=== PATIENT | female | born 1970 | race Caucasian/White ===

== ENCOUNTER 2021-07-16 15:59 | Observation (INO) ==
--- NOTE | 2021-07-16 16:30 | DR.GENAD ---
HPI Time Seen Time Seen by Provider: 07/16/21 16:29 PCP Primary Care Physician: MARISOL HPI Comment HPI Comment: PATIENT IS 51YR OLD FEMALE IN ER WITH ABDOMINAL PAIN AND GENERALIZED WEAKNESS. HISTORY ANEMIA. NO FEVER, VOMITING OR DIARRHEA OR DYSURIA. RECENT BLOOD TRANSFUSION. Complaint/Symptoms Chief Complaint Doctors Comments: ABDOMINAL PAIN, GENERALIZED WEAKNESS AND HISTORY OF ANEMIA. Chief Complaint:: PATIENT STATES SHE HAS BEEN HAVING ABD PAIN. PATIENT ALSO STATES IN THE RECENT PAST SHE HAS HAD TO HAVE OUT PATIENT BLOOD TRANSFUSIONS D/T ANEMIA. PATIENT HAS BEEN HAVING SOME WEAKNESS WELL. COVID-19 Coronavirus risk:travel/contact w/high risk person: No Has patient experienced Coronavirus symptoms: No Nurses notes reviewed Nurses Notes Review: Yes Source History Provided: Patient Mode of Arrival Mode of Arrival: EMS Timing Onset of Chief Complaint: 07/10/21 Came on: Suddenly Duration Duration: Constant Duration: Days Severity Severity: Moderate Modifying Factors Worsens:: EATING. Improves:: LYING STILL. Associated Signs and Symptoms Associated Signs and Symptoms: WEAKNESS Other History Other History: HISTORY ANEMIA. PMH PMH Past Medical History: Yes Past Medical History: Anemia, Anxiety, COPD, Depression, GERD, Hypertension and Liver Disease Past Medical History Comment: HEPATITIS, INSOMNIA, PANCREATITIS Past Surgical History: Yes Surgical History: Abdominal Surgery Family History History of Family Medical Conditions: Yes Social History Does any household member use tobacco: No Alcohol Use: None Do you use any recreational Drugs:: No Lives With: Other Lives Where: Custodial Travel Risk Coronavirus risk:travel/contact w/high risk person: No Has patient experienced Coronavirus symptoms: No Infectious screening In the last 2 months have you had wt loss of >10#?: NO Have you had fever, night sweats or hemotysis?: No Have you traveled outside the country in the last 6 months?: No Isolation: Standard ROS Review of Systems Constitutional: See HPI, Weakness and Fatigue; negative Fever Eyes: No Symptoms Reported and See HPI; negative Blurred Vision and Diplopia ENTM: No Symptoms Reported and See HPI; negative Nose Discharge and Nose Congestion Respiratoy: No Symptoms Reported and See HPI; negative Moist Cough, Short of Breath and Wheezing Cardiovascular: No Symptoms Reported and See HPI; negative Chest Pain Gastrointestinal/Abdominal: See HPI, Abdominal Pain and Nausea; negative Diarrhea and Vomiting Genitourinary: No Symptoms Reported and See HPI; negative Dysuria and Hematuria Neurological: See HPI and Weakness; negative Headache and Dizziness Musculoskeletal: No Symptoms Reported and See HPI; negative Back Pain and Muscle Pain Integumentary: No Symptoms Reported and See HPI; negative Rash and Juandice Hematologic/Lymphatic: No Symptoms Reported and See HPI; negative Easy Bleeding and Easy Bruising Endocrine: No Symptoms Reported and See HPI; negative Increased Thirst and Increased Urine Psychiatric: No Symptoms Reported and See HPI All Other Systems: Reviewed and Negative PE Vital Signs Vitals: Temperature 97.8 F Pulse Rate 78 Respiratory Rate 20 Blood Pressure [Left Arm] 152/80 Blood Pressure 138/70 O2 Sat by Pulse Oximetry 99 General Limitations: No Limitations General Appearance: Alert and In No Apparent Distress Head Head Exam: Normal Inspection Eyes Eye exam: Normal Appearance and PERRL; negative Scleral Icterus and Conjunctival Injection ENT ENT Exam: Normal Exam, Normal Oropharynx, Normal External Ear Exam and TM's No rmal Bilaterally External Ear Exam: Normal External Inspection; negative Mastoid Tenderness TM/Canal Exam: Bilateral: Normal Nose Exam: Normal Nose Exam Mouth Exam: Normal Inspection; negative Lip Swelling and Tongue Swelling Throat Exam: Normal Inspection; negative Tonsillar Erythema, Tonsillomegaly and Tonsillar Exudate Neck Neck Exam: Normal Inspection and Trachea Midline; negative Tenderness Chest Chest Inspection: Normal Inspection and Symmetric Chest Wall Rise; negative Tenderness Respiratory Respiratory Exam: Normal Lung Sounds Bilat; negative Accessory Muscle Use, Chest Wall Tenderness and Respiratory Distress Respiratory Exam: Bilateral: Clear to Auscultation Cardiovascular Cardiovascular Exam: Regular Rate, Normal Rhythm and Normal Heart Sounds; negative Systolic Murmur and Diastolic Murmur Abdominal Exam Abdominal Exam: Normal Bowel Sounds, Soft and Tenderness Abdominal Tenderness: Diffuse and Mild Extremities Extremities Exam: Normal Inspection and Normal Capillary Refill Back Back Exam: Normal Inspection; negative (R) CVA Tenderness and (L) CVA Tenderness Neurologic Neurological Exam: Alert and Oriented X3; negative Motor Sensory Deficit Psychiatric Psychiatric Exam: Normal Affect and Normal Mood Skin Skin Exam: Warm, Dry, Intact and Normal Color MDM Differential Diagnosis Differential Diagnosis: ABDOMINAL PAIN, VIRAL SYNDROME, GENERALIZED WEAKNESS, ANEMIA. COURSE Treatment Treatment: SEE ORDERS DONE WHILE IN ER. LABS, EKG AND XRAY DISCUSSED WITH PATIENT. PATIENT ADMITTED TO HOSPITAL FOR FURTHER MANAGEMENT. Consultation Consultation Comments: DISCUSSED PATIENT WITH DR. JONES. HE WILL ADMIT PATIENT ROR Labs Reviewed Laboratory Results Reviewed?: Yes Result Diagrams: 07/18/21 05:57 07/18/21 05:57 Laboratory: WBC 9.6 X10^3/uL (3.6-10.0) 07/16/21 16:58 RBC 3.55 X10^6/uL (3.5-5.4) 07/16/21 16:58 Hgb 8.7 g/dL (12.0-16.0) L 07/16/21 16:58 Hct 26.4 % (36.0-47.0) L 07/16/21 16:58 MCV 74.4 fL (80.0-100.0) L 07/16/21 16:58 MCH 24.5 pg (27.0-34.0) L 07/16/21 16:58 MCHC 33.0 g/dL (33.0-35.0) 07/16/21 16:58 RDW 28.6 % (11.6-16.5) H 07/16/21 16:58 Plt Count 364 X10^3/uL (150.0-450.0) 07/16/21 16:58 Plt Count Comment Adequate (ADEQUATE) 07/16/21 16:58 MPV 8.8 fL (7.4-11.0) 07/16/21 16:58 Neut % (Auto) 62.3 % (42.0-75.0) 07/16/21 16:58 Lymph % (Auto) 22.9 % (21.0-51.0) 07/16/21 16:58 [place] % (Auto) 8.0 % (0.0-13.0) 07/16/21 16:58 Eos % (Auto) 5.9 % (0.9-2.9) H 07/16/21 16:58 Baso % (Auto) 0.9 % (0.2-1.0) 07/16/21 16:58 Neut # (Auto) 6.0 x10^3/uL (2.2-4.8) H 07/16/21 16:58 Lymph # (Auto) 2.2 X10^3/uL (1.3-2.9) 07/16/21 16:58 [place] # (Auto) 0.8 x10^3/uL (0.3-0.8) 07/16/21 16:58 Eos # (Auto) 0.6 x10^3/uL (0.0-0.2) H 07/16/21 16:58 Baso # (Auto) 0.1 X10^3/uL (0.0-0.1) 07/16/21 16:58 Absolute Nucleated RBC 0.0 /100WBC 07/16/21 16:58 Plt Morphology Comment Normal (NORMAL) 07/16/21 16:58 RBC Morphology Abnormal (NORMAL) A 07/16/21 16:58 Hypochromasia Slight A 07/16/21 16:58 Anisocytosis 3+ A 07/16/21 16:58 Microcytosis Slight A 07/16/21 16:58 Target Cells Present 07/16/21 16:58 APTT 36.5 SECONDS (22.9-36.5) 07/16/21 16:58 PTT Comment - 07/16/21 16:58 Sodium 138 mmol/L (136-145) 07/16/21 16:58 Corrected Sodium 138 mmol/L (136-145) 07/16/21 16:58 Potassium 3.2 mmol/L (3.5-5.1) L 07/16/21 16:58 Chloride 102 mmol/L (98-107) 07/16/21 16:58 Carbon Dioxide 23.5 mmol/L (21-32) 07/16/21 16:58 BUN 25 mg/dL (7-18) H 07/16/21 16:58 Creatinine 2.13 mg/dL (0.55-1.02) H 07/16/21 16:58 Est GFR (MDRD) Af Amer 32 (>60) L 07/16/21 16:58 Est GFR (MDRD) Non-Af 26 (>60) L 07/16/21 16:58 Glucose 120 mg/dL (65-99) H 07/16/21 16:58 Calcium 8.5 mg/dL (8.5-10.1) 07/16/21 16:58 Corrected Calcium 9.5 mg/dL (8.5-10.1) 07/16/21 16:58 Total Bilirubin 0.20 mg/dL (0.2-1.0) 07/16/21 16:58 AST 14 Units/L (15-37) L 07/16/21 16:58 ALT 12 Units/L (12-78) 07/16/21 16:58 Alkaline Phosphatase 226 Units/L (46-116) H 07/16/21 16:58 Total Protein 7.7 g/dL (6.4-8.2) 07/16/21 16:58 Albumin 2.8 g/dL (3.4-5.0) L 07/16/21 16:58 Globulin 4.9 g/dL (2.5-4.5) H 07/16/21 16:58 Albumin/Globulin Ratio 0.6 Ratio (1.1-2.1) L 07/16/21 16:58 Amylase 22 Units/L (25-115) L 07/16/21 16:58 Lipase 307 Units/L (73-393) 07/16/21 16:58 SARS CoV-2 RNA Rapid KATINA Negative (NEGATIVE) 07/16/21 17:02 Blood Type B POSITIVE 07/16/21 16:58 Antibody Screen Negative 07/16/21 16:58 XRAY XRAY Interpreted by: Radiologist (REPORT NOTED.) and Self EKG Rate: 91 [place]: Normal Rhythm: NSR Block: None Hypertrophy: None ST: Nonsp Opioid Opioid Risk Tool Age (Yared box if 16-45): No History of Preadolescent Sexual Abuse: No Total: 0 Total Score Risk Category: Low Risk Copyright: Jessee SORTO predicting aberrant behaviors Diagnosis Discharge Problem: Infected surgical wound, Acute dehydration, Renal insufficiency, Hypokalemia Anemia Qualifiers: Anemia type: iron deficiency Iron deficiency anemia type: chronic blood loss Qualified Code(s): D50.0 - Iron deficiency anemia secondary to blood loss (chronic) Instructions Instructions: Colonoscopy, Adult, Care After, [id number] Forms: Precautions for COVID19 [facility] Social Distancing
[2021-07-16 17:11] LABS: BASOPHILS # (AUTO) 0.1 X10^3/uL (0.0-0.1); MEAN PLATELET VOLUME 8.8 fL (7.4-11.0); RED BLOOD COUNT 3.55 X10^6/uL (3.5-5.4); RED CELL DISTRIBUTION WIDTH 28.6 % (11.6-16.5); WHITE BLOOD COUNT 9.6 X10^3/uL (3.6-10.0)
[2021-07-16 17:17] LABS: BASOPHILS % (AUTO) 0.9 % (0.2-1.0); EOSINOPHILS # (AUTO) 0.6 x10^3/uL (0.0-0.2); EOSINOPHILS % (AUTO) 5.9 % (0.9-2.9); HEMATOCRIT 26.4 % (36.0-47.0); HEMOGLOBIN 8.7 g/dL (12.0-16.0); LYMPHOCYTES # (AUTO) 2.2 X10^3/uL (1.3-2.9); LYMPHOCYTES % (AUTO) 22.9 % (21.0-51.0); MEAN CORPUSCULAR HEMOGLOBIN 24.5 pg (27.0-34.0); MEAN CORPUSCULAR VOLUME 74.4 fL (80.0-100.0); MONOCYTES # (AUTO) 0.8 x10^3/uL (0.3-0.8); NEUTROPHILS % (AUTO) 62.3 % (42.0-75.0)
[2021-07-16 17:20] LABS: AMYLASE 22 Units/L (25-115); LIPASE 307 Units/L (73-393)
[2021-07-16 17:24] LABS: ALBUMIN 2.8 g/dL (3.4-5.0); CALCIUM 8.5 mg/dL (8.5-10.1); CARBON DIOXIDE 23.5 mmol/L (21-32); COR CA(FOR HYPOALB) 9.5 mg/dL (8.5-10.1); CREATININE 2.13 mg/dL (0.55-1.02); TOTAL PROTEIN 7.7 g/dL (6.4-8.2)
[2021-07-16 17:55] LABS: HYPOCHROMASIA SLIGHT; PLATELET MORPHOLOGY COMMENT NORMAL (NORMAL)
[2021-07-16 17:56] LABS: ANISOCYTOSIS 3+; MICROCYTOSIS SLIGHT; TARGET CELLS PRESENT
[2021-07-16] MEDS ORDERED: KLOR-CON ONE (18:00)
[2021-07-16] MEDS: KLOR-CON PO SCH (18:11)
--- NOTE | 2021-07-16 20:27 | RAD ---
HISTORYHAVING ABD PAIN. PATIENT ALSO STATES IN THE PAST SHE HAS HAD TO HAVE OUT PATIENT BLOOD TRANSFUSIONS D/T ANEMIA. PATIENT HAS BEEN HAVING SOME WEAKNESS WELL. Relevant Clinical InformationSTUDYACUTE ABDOMEN SERIESCOMPARISONFINDINGSHeart size is normal. Lungs are clear. There is no pleural effusion or pneumothorax. There is nonspecific gas is dilation of both small and large bowel. The etiology is uncertain. This could be ileus or less likely obstruction. No free air is detected.IMPRESSION1. [No acute cardiopulmonary disease.]2. [Nonspecific dilation large and small bowel. Question ileus versus less likely obstruction.]Electronically signed by: Philippe Cole (Jul 16, 2021 20:26:20)
[2021-07-16] MEDS ORDERED: ACETAMINOPHEN 325 MG/10.15 ML PO PRN (21:19)
[2021-07-16] MEDS ORDERED: TYLENOL ELIXIR 325 MG UDC PO PRN ×2 (21:50→22:00)
[2021-07-16] MEDS: NS 1,000 ML IV 1,000 ML IV SCH (22:00)
[2021-07-16 23:24] LABS: BILIRUBIN,URINE NEGATIVE (NEGATIVE); BLOOD/HEMOGLOBIN,URINE 2+ (NEGATIVE); GLUCOSE, URINE NEGATIVE (NEGATIVE); KETONES,URINE NEGATIVE (NEGATIVE); LEUKOCYTE ESTERASE ,URINE 3+ (NEGATIVE); NITRITES,URINE NEGATIVE (NEGATIVE); PROTEIN,URINE 2+ (NEGATIVE); UROBILINOGEN,URINE NORMAL (NORMAL)
[2021-07-16 23:34] LABS: APPEARANCE,URINE SLIGHTLY HAZY (CLEAR); BACTERIA,URINE 1+ /HPF (NEGATIVE); COLOR,URINE YELLOW (YELLOW); SQUAMOUS EPITHELIAL CELL,UR FEW /HPF (NEGATIVE)
[2021-07-17] MEDS ORDERED: PHARMACY CONSULT LTC MEDICATIONS XX SCH (01:00)
[2021-07-17] MEDS ORDERED: NYSTATIN POWDER ONE (06:08)
--- NOTE | 2021-07-17 06:08 | RAD ---
HISTORYAbdominal [id number] r.br.br small bowel dilatation present on the prior examination has improved. Findings would seem most consistent with mild ileus. Patient is status post ventral hernia repair. No abnormal masses or abnormal calcifications are identified. Regional skeleton is intact.IMPRESSIONFindings suggestive of mild ileusElectronically signed by: WOLFGANG LÓPEZ (Jul 17, 2021 06:07:56)
[2021-07-17 06:21] LABS: BASOPHILS # (AUTO) 0.1 X10^3/uL (0.0-0.1); BASOPHILS % (AUTO) 0.9 % (0.2-1.0); EOSINOPHILS # (AUTO) 0.5 x10^3/uL (0.0-0.2); EOSINOPHILS % (AUTO) 5.2 % (0.9-2.9); HEMATOCRIT 23.8 % (36.0-47.0); HEMOGLOBIN 7.9 g/dL (12.0-16.0); LYMPHOCYTES # (AUTO) 1.9 X10^3/uL (1.3-2.9); LYMPHOCYTES % (AUTO) 18.8 % (21.0-51.0); MEAN CORPUSCULAR HEMOGLOBIN 24.5 pg (27.0-34.0); MEAN CORPUSCULAR HGB CONC 33.3 g/dL (33.0-35.0); MEAN CORPUSCULAR VOLUME 73.3 fL (80.0-100.0); MEAN PLATELET VOLUME 8.7 fL (7.4-11.0); MONOCYTES # (AUTO) 0.8 x10^3/uL (0.3-0.8); MONOCYTES % (AUTO) 8.3 % (0.0-13.0); NEUTROPHILS # (AUTO) 6.7 x10^3/uL (2.2-4.8); NEUTROPHILS % (AUTO) 66.8 % (42.0-75.0); RED BLOOD COUNT 3.25 X10^6/uL (3.5-5.4); RED CELL DISTRIBUTION WIDTH 28.4 % (11.6-16.5); WHITE BLOOD COUNT 10.1 X10^3/uL (3.6-10.0)
[2021-07-17] MEDS ORDERED: NYSTATIN POWDER TOP PRN (06:23)
[2021-07-17 06:37] LABS: BLOOD UREA NITROGEN 18 mg/dL (7-18); CALCIUM 7.7 mg/dL (8.5-10.1)
[2021-07-17 07:00] LABS: ALANINE AMINOTRANSFERASE 11 Units/L (12-78); ALBUMIN 2.3 g/dL (3.4-5.0); ALKALINE PHOSPHATASE 188 Units/L (46-116); ASPARTATE AMINO TRANSFERASE 14 Units/L (15-37); CARBON DIOXIDE 20.1 mmol/L (21-32); CHLORIDE 104 mmol/L (98-107); COR CA(FOR HYPOALB) 9.1 mg/dL (8.5-10.1); CREATININE 1.63 mg/dL (0.55-1.02); MAGNESIUM 0.8 mg/dL (1.7-2.9); SODIUM 137 mmol/L (136-145); TOTAL PROTEIN 6.3 g/dL (6.4-8.2); eGFR NON BLACK RACES 35 (>60)
[2021-07-17] MEDS: PHENERGAN INJ 25 MG IM PRN (07:03)
[2021-07-17 07:21] LABS: BAND NEUTROPHILS % 2 % (0-10)
[2021-07-17 07:22] LABS: ANISOCYTOSIS 3+; PLATELET MORPHOLOGY COMMENT NORMAL (NORMAL); TARGET CELLS PRESENT
[2021-07-17 07:23] LABS: HYPOCHROMASIA SLIGHT; MICROCYTOSIS SLIGHT
[2021-07-17] MEDS: KLOR-CON PO SCH (08:31)
[2021-07-17] MEDS: NS + KCL 20 MEQ/L 1,000 ML IV SCH (12:10)
[2021-07-17] MEDS ORDERED: GOLYTELY or GAVILYTE or Equivalent PO SCH (13:00)
[2021-07-17 13:04] VITALS: BMI 44.8
[2021-07-17] MEDS ORDERED: DULCOLAX TAB EC 5 MG PO ONE (13:28)
[2021-07-17] MEDS ORDERED: CITROMA PO ONE (13:28)
[2021-07-17] MEDS: NS 1,000 ML IV 1,000 ML IV SCH (13:42)
[2021-07-17] MEDS: MAGNESIUM SULFATE 1 GRAM/100 mL PREMIX 1 G/100 ML BAG IV PRN ×4 (14:30→20:50)
[2021-07-18] MEDS: MAGNESIUM SULFATE 1 GRAM/100 mL PREMIX 1 G/100 ML BAG IV PRN (00:05)
[2021-07-18] MEDS: PHENERGAN INJ 25 MG IM PRN ×2 (01:02→10:40)
[2021-07-18 06:34] LABS: BASOPHILS # (AUTO) 0.1 X10^3/uL (0.0-0.1); BASOPHILS % (AUTO) 0.6 % (0.2-1.0); EOSINOPHILS # (AUTO) 0.4 x10^3/uL (0.0-0.2); EOSINOPHILS % (AUTO) 3.4 % (0.9-2.9); HEMATOCRIT 28.1 % (36.0-47.0); HEMOGLOBIN 8.8 g/dL (12.0-16.0); LYMPHOCYTES # (AUTO) 2.1 X10^3/uL (1.3-2.9); LYMPHOCYTES % (AUTO) 17.7 % (21.0-51.0); MEAN CORPUSCULAR HEMOGLOBIN 23.4 pg (27.0-34.0); MEAN CORPUSCULAR HGB CONC 31.5 g/dL (33.0-35.0); MEAN CORPUSCULAR VOLUME 74.2 fL (80.0-100.0); MEAN PLATELET VOLUME 9.1 fL (7.4-11.0); MONOCYTES # (AUTO) 0.7 x10^3/uL (0.3-0.8); MONOCYTES % (AUTO) 6.1 % (0.0-13.0); NEUTROPHILS # (AUTO) 8.4 x10^3/uL (2.2-4.8); NEUTROPHILS % (AUTO) 72.2 % (42.0-75.0); RED BLOOD COUNT 3.78 X10^6/uL (3.5-5.4); RED CELL DISTRIBUTION WIDTH 27.9 % (11.6-16.5); WHITE BLOOD COUNT 11.6 X10^3/uL (3.6-10.0)
[2021-07-18] MEDS: NS + KCL 20 MEQ/L 1,000 ML IV SCH (07:12)
[2021-07-18 07:13] LABS: BAND NEUTROPHILS % 4 % (0-10)
[2021-07-18 07:14] LABS: ANISOCYTOSIS 3+; HYPOCHROMASIA 1+; MICROCYTOSIS SLIGHT; OVALOCYTES PRESENT; PLATELET MORPHOLOGY COMMENT NORMAL (NORMAL); TARGET CELLS PRESENT
[2021-07-18 07:16] LABS: ALANINE AMINOTRANSFERASE 11 Units/L (12-78); ALBUMIN 2.6 g/dL (3.4-5.0); ALKALINE PHOSPHATASE 211 Units/L (46-116); ASPARTATE AMINO TRANSFERASE 16 Units/L (15-37); BLOOD UREA NITROGEN 11 mg/dL (7-18); CALCIUM 8.9 mg/dL (8.5-10.1); CARBON DIOXIDE 22.5 mmol/L (21-32); CHLORIDE 104 mmol/L (98-107); CREATININE 1.23 mg/dL (0.55-1.02); MAGNESIUM 2.2 mg/dL (1.7-2.9); SODIUM 138 mmol/L (136-145); TOTAL PROTEIN 7.4 g/dL (6.4-8.2); eGFR NON BLACK RACES 49 (>60)
[2021-07-18] MEDS ORDERED: ZANAFLEX PO PRN (08:23)
[2021-07-18] MEDS ORDERED: MYLICON TAB 80 MG CHEW PO PRN (08:23)
[2021-07-18] MEDS ORDERED: [UNRECOGNIZED DRUG - OTHER] IN PRN (08:23)
[2021-07-18] MEDS ORDERED: ALBUTEROL IN PRN (08:23)
[2021-07-18] MEDS ORDERED: DULCOLAX SUPPOSITORY 10 MG PR PRN (08:23)
[2021-07-18] MEDS ORDERED: MOTRIN TAB 800 MG PO PRN (08:23)
[2021-07-18] MEDS ORDERED: [UNRECOGNIZED DRUG - OTHER] PO SCH (08:30)
[2021-07-18] MEDS ORDERED: LIPASE PROTEASE AMYLASE PO SCH (08:30)
[2021-07-18] MEDS ORDERED: ATARAX TAB 25 MG PO SCH (08:30)
[2021-07-18] MEDS ORDERED: LR 1,000 ML IV 1,000 ML IV ONE (08:42)
[2021-07-18] MEDS ORDERED: D5 LR 1,000 ML 1,000 ML IV ONE (08:43)
--- NOTE | 2021-07-18 08:48 | DR.H&P ---
H&P - History & Physical for Day of: H&P Date: 07/16/21 - Chief Complaint Chief Complaint: ABDOMINAL WALL WOUND, ABDOMINAL PAIN, WEAKNESS - History of Present Illness History of Present Illness: IS A 51 YEAR OLD FEMALE FROM [facility]. SHE PRESENTED WITH COMPLAINTS OF ABDOMINAL PAIN, ABDOMINAL WOUND, AND WEAKNESS. SHE HAS APPARENTLY BEEN FOLLOWED BY , GENERAL SURGEON, IN THE PAST FOR ABDOMINAL WALL INFECTION. PATIENT PRESENTED WITH WITH A LARGE OPEN ABDOMINAL WALL WOUND WITH BLOODY DRAINAGE. ABDOMINAL WOUND MEASURES ABOUT 12 X 12 WITH GRANULATING TISSUE. MILD TO MODERATE ASSOCIATED CELLULITIS AND TUNNELING OF EDGES. SHE HAS HAD A RECENT CLOSURE OF COLOSTOMY WITH SUBSEQUENT WOUND INFECTION. SHE HAS A HISTORY OF SEVERE PANCREATITIS WHICH APPARENTLY REQUIRED A BOWEL RESECTION. NO OLD RECORDS ARE AVAILABE. RESECTION AND COLOSTOMY DONE IN 2020 PER PATIENT. OTHER PMH INCLUDES ANEMIA, ANXIETY, DEPRESSION, COPD, GERD, HTN, BIPOLAR DISORDER, OBESITY, LIVER DISEASE, HEPATITIS, INSOMNIA, AND PANCREATITIS. ON ARRIVAL, HER VITALS WERE 97.8-78-20-99%-138/70. LABS OBTAINED AND REVEALED: WBC 9.6, HGB 8.7, HCT 26.4, SODIUM 138, POTASSIUM 3.2, BUN 25, CREATININE 2.13, GLUCOSE 120, AST 14, ALT 12, ALK PHOS 226, ALBUMIN 2.8, GLOBULIN 4.9, AMULASE 22, LIPASE 307. URINALYSIS REVEALED: WBC 30-50, RBC 5-10, LEUKOCYTES 3+, BACTERIA 1+, BLOOD 2+. A URINE CULTURE WAS SET UP. ABDOMEN AND WOUND CULTURE SET UP. AN ABDOMINAL XRAY WAS OBTAINED AND REVEALED: 1. No acute cardiopulmonary disease. 2. Nonspecific dilation large and small bowel. Question ileus versus less likely obstruction. EKG OBTAINED AND REVEALED: NSR WITH HR 91. PATIENT WAS ADMITTED TO THE HOSPTIAL FOR FURTHER EVALUATION AND TREATMENT OF ANEMIA, DEHYDRATION, ABDOMINAL WALL INFECTION, RENAL INSUFFICIENCY, HYPOKALEMIA. WE CONSULTED . HE PLANS FOR EGD/COLONOSCOPY TOMORROW. SHE WAS STARTED ON NS WITH 20MEQ KCL AT 75 ML/HR, ZOSYN 3.375G IV TID, PHENERGAN 12.5MG IM Q6H PRN, TYLENOL 650MG PO Q4H PRN PAIN/FEVER. WE WILL REVIEW HER HOME MEDICATIONS AND RESUME APPROPRIATE. OTHERWISE, WE PLAN TO FOLLOW-UP WITH AM LABS AND CONTINUE TO MONITOR. TIME SPENT ON CLINICAL ASSESSMENT, REVIEWING LABS AND IMAGING, DECISION MAKING, AND DOCUMENTATION GREATER THAN 75 MINUTES. - Past Medical History Past Medical History: Hypertension, Liver Disease, Depression, Anxiety, Anemia, COPD, GERD - Past Surgical History Surgical History: , Cholecystectomy, Hysterectomy - Social History Does any household member use tobacco: No Alcohol Use: None Drug Use: None - Medications Home Medications: benztropine Allergy (Verified 11/10/19 10:57) ciprofloxacin [From Cipro] Allergy (Verified 11/10/19 10:57) divalproex sodium [From Depakote] Allergy (Verified 11/10/19 10:57) ondansetron [From Zofran] Allergy (Verified 01/03/21 14:34) CONTINUE taking the following medications acetaminophen 650 mg PO Q4H PRN 07/16/21 [History] acetaminophen 650 mg CA Q4H PRN 07/16/21 [History] albuterol sulfate 2 inh INHALATION Q4H PRN 07/16/21 [History] bisacodyl [Dulcolax (bisacodyl)] 10 mg PO QHS PRN 07/16/21 [History] buprenorphine-naloxone [Suboxone] 1 film BUCCAL TID 07/16/21 [History] buspirone 10 mg PO BID 07/16/21 [History] [id number] 2 drp OPHTHALMIC (EYE) Q6H PRN 07/16/21 [History] carboxymethylcellulose sodium 1 drp OPHTHALMIC (EYE) QID PRN 07/16/21 [History] cariprazine [Vraylar] 3 mg PO DAILY 07/16/21 [History] carvedilol [Coreg] 3.125 mg PO BID 07/16/21 [History] citalopram 40 mg PO DAILY 07/16/21 [History] ferrous sulfate 325 mg PO DAILY 07/16/21 [History] fluticasone propionate 2 spray INTRANASAL DAILY 07/16/21 [History] furosemide 20 mg PO BID 07/16/21 [History] hydroxyzine HCl 25 mg PO TID 07/16/21 [History] ibuprofen 800 mg PO Q8H PRN 07/16/21 [History] linaclotide [Linzess] 290 mcg PO QAM 07/16/21 [History] bnzggf-lfmghhtc-vtwqzhg [Creon] 3 cap PO TID 07/16/21 [History] loperamide 2 mg PO Q6H PRN 07/16/21 [History] metoclopramide HCl 10 mg PO QACHS 07/16/21 [History] multivitamin 1 tab PO QAM 07/16/21 [History] pantoprazole 40 mg PO QAM 07/16/21 [History] prazosin 1 mg PO QHS 07/16/21 [History] primidone 100 mg PO DAILY 07/16/21 [History] promethazine 12.5 mg PO Q6H PRN 07/16/21 [History] quetiapine 300 mg PO QHS 07/16/21 [History] silver sulfadiazine 1 applic TOPICAL DAILY 07/16/21 [History] simethicone 80 mg PO Q8H PRN 07/16/21 [History] tizanidine 4 mg PO BID PRN 07/16/21 [History] topiramate 100 mg PO BID 07/16/21 [History] zinc 50 mg PO ONCE 07/16/21 [History] zolpidem [Ambien] 10 mg PO QHS PRN 07/16/21 [History] - Review of Systems Constitutional: Weakness Eyes: No Symptoms Reported ENT: No Symptoms Reported Respiratory: No Symptoms Reported Cardiovascular: No Symptoms Reported Gastrointestinal: See HPI, Nausea, Abdominal Pain Genitourinary: No Symptoms Reported Musculoskeletal: No Symptoms Reported Skin: Wound Neurological: Weakness - Physical Exam Vital Signs: Temperature 98.3 F Pulse Rate [Brachial] 76 Pulse Rate 78 Respiratory Rate 18 Blood Pressure [Left Arm] 132/70 Blood Pressure 138/70 O2 Sat by Pulse Oximetry 98 Oriented: Normal Eyes: Normal Ear: Normal Nose: Normal Respiratory: Diminished Throughout Cardiovascular: Normal : Normal Auscultation: Bowel Sounds: Normal Palpation: Normal, Other Tenderness: Diffuse, Moderate Skin: Wound (12 X 12 OPEN WOUND WITH GRANULATING TISSUE. MILD TO MODERATE ASS OCIATED CELLULITIS AND TUNNELING OF EDGES) Musculoskeletal: Normal Psychiatric: Normal Mood Description: Calm Affect: Normal Speech Pattern: Clear - Assessment/Plan (1) Wound, open, abdominal wall, anterior Qualifiers: Encounter type: sequela Qualified Code(s): S31.109S - Unspecified open wound of abdominal wall, unspecified quadrant without penetration into peritoneal cavity, sequela Status: Acute Plan: ADMIT, SURGICAL CONSULT, NS WITH 20MEQ KCL AT 75 ML/HR, ZOSYN 3.375G IV TID, PHENERGAN 12.5MG IM Q6H PRN, TYLENOL 650MG PO Q4H PRN PAIN/FEVER. (2) Anemia Qualifiers: Anemia type: iron deficiency Iron deficiency anemia type: chronic blood loss Qualified Code(s): D50.0 - Iron deficiency anemia secondary to blood loss (chronic) Status: Acute (3) Acute dehydration Status: Acute (4) Hypokalemia Status: Acute - Allergies Allergies/Adverse Reactions: Allergies Allergy/AdvReac Type Severity Reaction Status Date / Time benztropine Allergy Verified 11/10/19 10:57 ciprofloxacin [From Cipro] Allergy Verified 11/10/19 10:57 divalproex sodium Allergy Verified 11/10/19 10:57 [From Depakote] ondansetron [From Zofran] Allergy Verified 01/03/21 14:34
[2021-07-18] MEDS ORDERED: ZOSYN VIAL 3.375 GRAMS 3.375 G in NS 100 ML IV 100 ML IV SCH (09:00)
[2021-07-18] MEDS ORDERED: CARIPRAZINE 3 MG PO SCH (09:00)
[2021-07-18] MEDS ORDERED: CELEXA PO SCH (09:00)
[2021-07-18] MEDS ORDERED: ZINC SULFATE PO SCH (09:00)
[2021-07-18] MEDS ORDERED: COREG TAB 3.125 MG PO SCH (09:00)
[2021-07-18] MEDS ORDERED: FLONASE NASAL SPRAY ENOSTRIL SCH (09:00)
[2021-07-18] MEDS ORDERED: PROTONIX TAB 40 MG PO SCH (09:00)
[2021-07-18] MEDS ORDERED: TAB-A-VITE PO SCH (09:00)
[2021-07-18] MEDS ORDERED: SUBOXONE FILM SL SCH (09:00)
[2021-07-18] MEDS: FERROUS GLUCONATE PO SCH ×2 (09:00→10:06)
[2021-07-18] MEDS ORDERED: BUSPAR PO SCH (09:00)
[2021-07-18] MEDS ORDERED: TOPAMAX TAB 100 MG PO SCH (09:00)
[2021-07-18] MEDS ORDERED: LINZESS PO SCH (09:00)
[2021-07-18] MEDS ORDERED: MYSOLINE PO SCH (09:00)
[2021-07-18] MEDS ORDERED: KETAMINE HCL ONE (09:04)
[2021-07-18] MEDS ORDERED: XYLOCAINE 2 % (PLAIN) ONE (09:04)
[2021-07-18] MEDS ORDERED: DIPRIVAN VIAL 20 ML ONE ×2 (09:10→09:15)
[2021-07-18] MEDS ORDERED: PROTONIX INJ 40 MG VIAL IVP SCH (10:00)
[2021-07-18] MEDS ORDERED: REGLAN TAB 10 MG PO SCH (11:30)
[2021-07-18 12:18] VITALS: BP 143/70
[2021-07-18] MEDS ORDERED: NEURONTIN TAB 600 MG PO SCH (14:00)
[2021-07-18] MEDS ORDERED: AMBIEN PO PRN (21:00)
[2021-07-18] MEDS ORDERED: PRAZOSIN 1 MG PO SCH (21:00)
[2021-07-19] MEDS ORDERED: FLONASE NASAL SPRAY ENOSTRIL SCH (09:00)
== END 2021-07-18 13:20 ==
LOC: MED/SURG 15:59 → ER 15:59 → MED/SURG 21:39
PROVIDERS: ADMIT Internal Medicine; ATTEND Internal Medicine

== ENCOUNTER 2021-08-31 07:03 | Inpatient (IN) ==
[~2021-08-31 07:03] MED LIST: KETAMINE HCL ONE
[2021-08-31] MEDS ORDERED: LR 1,000 ML IV 1,000 ML IV ONE (07:11)
[2021-08-31] MEDS ORDERED: NS 100 ML IV 100 ML ONE (07:11)
[2021-08-31] MEDS ORDERED: ANCEF VIAL 1 GRAM ONE (07:11)
[2021-08-31] MEDS ORDERED: POLYMYXIN B SULFATE ONE (09:16)
[2021-08-31] MEDS ORDERED: XYLOCAINE 1% and EPINEPHRINE 1:100,000 ONE ×2 (09:17→10:20)
[2021-08-31] MEDS ORDERED: BETADINE SOLN ONE (09:17)
[2021-08-31] MEDS ORDERED: PRECEDEX INJ VIAL IVP ONE (10:03)
[2021-08-31] MEDS ORDERED: XYLOCAINE 2 % (PLAIN) ONE (10:03)
[2021-08-31] MEDS ORDERED: FENTANYL VIAL INJ 100 mcg ONE (10:03)
[2021-08-31] MEDS ORDERED: DIPRIVAN VIAL 40 ML ONE (10:03)
[2021-08-31] MEDS ORDERED: ROBINUL ONE (10:03)
[2021-08-31] MEDS ORDERED: DIPRIVAN VIAL 20 ML ONE ×2 (10:10→10:58)
[2021-08-31 12:24] VITALS: BMI 43.8
[2021-08-31] MEDS: PERCOCET TAB 5/325 MG PO PRN ×2 (13:15→17:20)
[2021-08-31] MEDS ORDERED: PERCOCET TAB 5/325 MG ONE (13:15)
[2021-08-31] MEDS ORDERED: ANCEF VIAL 1 GRAM IVP SCH (14:00)
[2021-08-31] MEDS: D5 1/2 NS 1,000 ML 1,000 ML IV SCH ×2 (14:56→21:27)
[2021-08-31] MEDS: ANCEF VIAL 1 GRAM 1 G in NS 100 ML IV 100 ML IV SCH ×2 (14:56→21:28)
[2021-08-31] MEDS: CREON PO SCH (18:11)
[2021-08-31] MEDS: MORPHINE SULFATE INJ 2 MG INJ IVP PRN (19:50)
[2021-08-31] MEDS: COLACE CAP 100 MG PO SCH (21:29)
[2021-08-31] MEDS: AMBIEN PO PRN (21:30)
[2021-08-31] MEDS: COREG TAB 3.125 MG PO SCH (21:30)
[2021-08-31] MEDS: TOPAMAX TAB 100 MG PO SCH (21:30)
[2021-08-31] MEDS: CELEXA PO SCH (21:30)
[2021-08-31] MEDS: MYSOLINE PO SCH (21:31)
[2021-08-31] MEDS: HEMOCYTE-PLUS PO SCH (21:31)
[2021-08-31] MEDS: PRAZOSIN 1 MG PO SCH (21:32)
[2021-08-31] MEDS: VRAYLAR 3 MG PO SCH (21:32)
[2021-08-31] MEDS: NEURONTIN TAB 600 MG PO SCH (21:34)
[2021-09-01] MEDS: D5 1/2 NS 1,000 ML 1,000 ML IV SCH ×4 (00:01→22:12)
[2021-09-01] MEDS: MORPHINE SULFATE INJ 2 MG INJ IVP PRN ×5 (02:48→22:10)
[2021-09-01 05:09] LABS: CARBON DIOXIDE 25.9 mmol/L (21-32)
[2021-09-01 05:10] LABS: ALBUMIN 2.2 g/dL (3.4-5.0); CALCIUM 8.2 mg/dL (8.5-10.1); COR CA(FOR HYPOALB) 9.6 mg/dL (8.5-10.1); CREATININE 1.31 mg/dL (0.55-1.02)
[2021-09-01] MEDS ORDERED: KLOR-CON PO PRN (05:12)
[2021-09-01] MEDS ORDERED: MICRO K EXTEN CAP 10 MEQ PO PRN (05:12)
[2021-09-01] MEDS ORDERED: POTASSIUM CHLORIDE LIQ 20 MEQ UDC PO PRN (05:12)
[2021-09-01] MEDS ORDERED: K-RIDER 10 MEQ/NS 100 ML 10 MEQ/100 ML BAG IV PRN (05:12)
[2021-09-01 05:30] LABS: BASOPHILS # (AUTO) 0.1 X10^3/uL (0.0-0.1); BASOPHILS % (AUTO) 0.8 % (0.2-1.0); EOSINOPHILS # (AUTO) 0.2 x10^3/uL (0.0-0.2); EOSINOPHILS % (AUTO) 2.2 % (0.9-2.9); HEMOGLOBIN 7.6 g/dL (12.0-16.0); LYMPHOCYTES # (AUTO) 1.3 X10^3/uL (1.3-2.9); LYMPHOCYTES % (AUTO) 17.9 % (21.0-51.0); MEAN CORPUSCULAR HEMOGLOBIN 25.9 pg (27.0-34.0); MEAN CORPUSCULAR HGB CONC 32.9 g/dL (33.0-35.0); MEAN CORPUSCULAR VOLUME 78.5 fL (80.0-100.0); MEAN PLATELET VOLUME 8.6 fL (7.4-11.0); MONOCYTES # (AUTO) 0.5 x10^3/uL (0.3-0.8); MONOCYTES % (AUTO) 7.7 % (0.0-13.0); NEUTROPHILS # (AUTO) 5.1 x10^3/uL (2.2-4.8); NEUTROPHILS % (AUTO) 71.4 % (42.0-75.0); RED BLOOD COUNT 2.93 X10^6/uL (3.5-5.4); RED CELL DISTRIBUTION WIDTH 17.6 % (11.6-16.5); WHITE BLOOD COUNT 7.1 X10^3/uL (3.6-10.0)
[2021-09-01] MEDS: CREON PO SCH ×3 (06:00→16:35)
[2021-09-01] MEDS: K-DUR TAB 20 MEQ PO PRN (06:00)
[2021-09-01] MEDS: ANCEF VIAL 1 GRAM 1 G in NS 100 ML IV 100 ML IV SCH ×3 (06:00→22:12)
[2021-09-01] MEDS: NEURONTIN TAB 600 MG PO SCH ×3 (06:00→22:13)
[2021-09-01] MEDS: COREG TAB 3.125 MG PO SCH ×2 (08:01→22:14)
[2021-09-01] MEDS: LOVENOX INJ 40 MG SYR SC SCH (08:01)
[2021-09-01] MEDS: PERCOCET TAB 5/325 MG PO PRN (08:02)
[2021-09-01] MEDS: TOPAMAX TAB 100 MG PO SCH ×2 (08:02→22:15)
[2021-09-01] MEDS: MAGNESIUM SULFATE 1 GRAM/100 mL PREMIX 1 G/100 ML BAG IV PRN ×4 (08:02→12:12)
[2021-09-01] MEDS: MYSOLINE PO SCH ×2 (08:02→22:16)
--- NOTE | 2021-09-01 08:57 | DR.PROGNOT ---
Hospital Progress Notes - Progress Note for Day of: Progress Note Date: 09/01/21 - Chief Complaint Chief Complaint: c/o pain at the skin graft donor site .. otherwise no changes .. Hgb 7.9..K 2.9.. BUN/Crea 1.3 - Past Medical Family Social History Past Med/Fam/Surg Hx: No changes since H&P Allergies: Allergies ciprofloxacin [From Cipro] Allergy (Severe, Verified 08/31/21 07:33) ANAPHALEXIS REACTION divalproex sodium [From Depakote] Allergy (Severe, Verified 08/31/21 07:33) ANAPHALEXIS REACTION benztropine Allergy (Unknown, Verified 08/31/21 07:33) ondansetron [From Zofran] Adverse Reaction (Intermediate, Verified 08/31/21 07:33) NAUSEA and VOMITING - Review Of Systems ROS: No change since H&P - Vital Signs Vital Signs: Temperature 99.0 F Pulse Rate [Left Radial] 75 Pulse Rate 92 Respiratory Rate 20 Blood Pressure [Left Arm] 114/54 Blood Pressure 116/64 O2 Sat by Pulse Oximetry 96 - Physical Exam Oriented: Normal Ear: Normal Nose: Normal Throat: Normal Cardiovascular: Normal : Normal GI:Auscultation: Normal GI: Tenderness: Normal Skin: Normal Musculoskeletal: Normal Psychiatric: Normal Mood Description: Calm, Appropriate Affect: Anxious Speech Pattern: Clear, Appropriate - Laboratory and Diagnostics Result Diagrams: 09/01/21 03:37 09/01/21 08:08 Labs: Laboratory WBC 7.1 X10^3/uL (3.6-10.0) 09/01/21 03:37 RBC 2.93 X10^6/uL (3.5-5.4) L 09/01/21 03:37 Hgb 7.6 g/dL (12.0-16.0) L 09/01/21 03:37 Hct 23.0 % (36.0-47.0) L 09/01/21 03:37 MCV 78.5 fL (80.0-100.0) L 09/01/21 03:37 MCH 25.9 pg (27.0-34.0) L 09/01/21 03:37 MCHC 32.9 g/dL (33.0-35.0) L 09/01/21 03:37 RDW 17.6 % (11.6-16.5) H 09/01/21 03:37 Plt Count 291 X10^3/uL (150.0-450.0) 09/01/21 03:37 MPV 8.6 fL (7.4-11.0) 09/01/21 03:37 Neut % (Auto) 71.4 % (42.0-75.0) 09/01/21 03:37 Lymph % (Auto) 17.9 % (21.0-51.0) L 09/01/21 03:37 [place] % (Auto) 7.7 % (0.0-13.0) 09/01/21 03:37 Eos % (Auto) 2.2 % (0.9-2.9) 09/01/21 03:37 Baso % (Auto) 0.8 % (0.2-1.0) 09/01/21 03:37 Neut # (Auto) 5.1 x10^3/uL (2.2-4.8) H 09/01/21 03:37 Lymph # (Auto) 1.3 X10^3/uL (1.3-2.9) 09/01/21 03:37 [place] # (Auto) 0.5 x10^3/uL (0.3-0.8) 09/01/21 03:37 Eos # (Auto) 0.2 x10^3/uL (0.0-0.2) 09/01/21 03:37 Baso # (Auto) 0.1 X10^3/uL (0.0-0.1) 09/01/21 03:37 Absolute Nucleated RBC 0.0 /100WBC 09/01/21 03:37 Sodium 143 mmol/L (136-145) 09/01/21 03:37 Corrected Sodium 143 mmol/L (136-145) 09/01/21 03:37 Potassium 2.9 mmol/L (3.5-5.1) L* 09/01/21 08:08 Chloride 107 mmol/L (98-107) 09/01/21 03:37 Carbon Dioxide 25.9 mmol/L (21-32) 09/01/21 03:37 BUN 19 mg/dL (7-18) H 09/01/21 03:37 Creatinine 1.31 mg/dL (0.55-1.02) H 09/01/21 03:37 Est GFR (MDRD) Af Amer 55 (>60) L 09/01/21 03:37 Est GFR (MDRD) Non-Af 46 (>60) L 09/01/21 03:37 Glucose 113 mg/dL (65-99) H 09/01/21 03:37 Calcium 8.2 mg/dL (8.5-10.1) L 09/01/21 03:37 Corrected Calcium 9.6 mg/dL (8.5-10.1) 09/01/21 03:37 Magnesium 1.3 mg/dL (1.7-2.9) L 09/01/21 03:37 Total Bilirubin 0.20 mg/dL (0.2-1.0) 09/01/21 03:37 AST 21 Units/L (15-37) 09/01/21 03:37 ALT 11 Units/L (12-78) L 09/01/21 03:37 Alkaline Phosphatase 195 Units/L (46-116) H 09/01/21 03:37 Total Protein 6.0 g/dL (6.4-8.2) L 09/01/21 03:37 Albumin 2.2 g/dL (3.4-5.0) L 09/01/21 03:37 Globulin 3.8 g/dL (2.5-4.5) 09/01/21 03:37 Albumin/Globulin Ratio 0.6 Ratio (1.1-2.1) L 09/01/21 03:37 SARS-CoV-2 (PCR) Negative (NEGATIVE) 08/31/21 12:07 - Assessment and Plan 1: s/p split thickness skin graft to abdominal wall wound .. obesity .. Anxiety . anemia and hypokalemia. same IV ABT . keep dressing intact . OOB
[2021-09-01] MEDS: COLACE CAP 100 MG PO SCH (22:14)
[2021-09-01] MEDS: HEMOCYTE-PLUS PO SCH (22:14)
[2021-09-01] MEDS: AMBIEN PO PRN (22:15)
[2021-09-01] MEDS: CELEXA PO SCH (22:16)
[2021-09-01] MEDS: VRAYLAR 3 MG PO SCH (22:17)
[2021-09-01] MEDS: PRAZOSIN 1 MG PO SCH (22:17)
[2021-09-02] MEDS: PERCOCET TAB 5/325 MG PO PRN (01:48)
[2021-09-02] MEDS: MORPHINE SULFATE INJ 2 MG INJ IVP PRN ×5 (03:43→23:59)
[2021-09-02 05:00] LABS: BASOPHILS # (AUTO) 0.1 X10^3/uL (0.0-0.1); BASOPHILS % (AUTO) 0.7 % (0.2-1.0); EOSINOPHILS # (AUTO) 0.2 x10^3/uL (0.0-0.2); EOSINOPHILS % (AUTO) 3.3 % (0.9-2.9); HEMATOCRIT 24.1 % (36.0-47.0); LYMPHOCYTES # (AUTO) 1.4 X10^3/uL (1.3-2.9); LYMPHOCYTES % (AUTO) 19.1 % (21.0-51.0); MEAN CORPUSCULAR HEMOGLOBIN 25.9 pg (27.0-34.0); MEAN CORPUSCULAR VOLUME 78.5 fL (80.0-100.0); MEAN PLATELET VOLUME 8.7 fL (7.4-11.0); MONOCYTES # (AUTO) 0.6 x10^3/uL (0.3-0.8); NEUTROPHILS # (AUTO) 4.9 x10^3/uL (2.2-4.8); NEUTROPHILS % (AUTO) 67.9 % (42.0-75.0); RED BLOOD COUNT 3.08 X10^6/uL (3.5-5.4); RED CELL DISTRIBUTION WIDTH 17.9 % (11.6-16.5); WHITE BLOOD COUNT 7.2 X10^3/uL (3.6-10.0)
[2021-09-02] MEDS: D5 1/2 NS 1,000 ML 1,000 ML IV SCH ×3 (05:10→21:23)
[2021-09-02 05:11] LABS: CARBON DIOXIDE 23.9 mmol/L (21-32); CHLORIDE 105 mmol/L (98-107); SODIUM 141 mmol/L (136-145)
[2021-09-02 05:29] LABS: ALANINE AMINOTRANSFERASE 7 Units/L (12-78); ALBUMIN 2.5 g/dL (3.4-5.0); ALKALINE PHOSPHATASE 204 Units/L (46-116); ASPARTATE AMINO TRANSFERASE 18 Units/L (15-37); BLOOD UREA NITROGEN 12 mg/dL (7-18); CALCIUM 8.6 mg/dL (8.5-10.1); COR CA(FOR HYPOALB) 9.8 mg/dL (8.5-10.1); CREATININE 1.15 mg/dL (0.55-1.02); MAGNESIUM 1.9 mg/dL (1.7-2.9); TOTAL PROTEIN 6.8 g/dL (6.4-8.2); eGFR NON BLACK RACES 53 (>60)
[2021-09-02] MEDS: NEURONTIN TAB 600 MG PO SCH ×3 (06:08→21:24)
[2021-09-02] MEDS: ANCEF VIAL 1 GRAM 1 G in NS 100 ML IV 100 ML IV SCH ×3 (06:08→21:24)
[2021-09-02] MEDS: CREON PO SCH ×3 (06:09→16:40)
[2021-09-02] MEDS: MYSOLINE PO SCH ×2 (08:17→21:21)
[2021-09-02] MEDS: COREG TAB 3.125 MG PO SCH ×2 (08:17→21:20)
[2021-09-02] MEDS: LOVENOX INJ 40 MG SYR SC SCH (08:17)
[2021-09-02] MEDS: TOPAMAX TAB 100 MG PO SCH ×2 (08:18→21:21)
[2021-09-02] MEDS: MAGNESIUM SULFATE 1 GRAM/100 mL PREMIX 1 G/100 ML BAG IV PRN ×2 (08:18→11:50)
--- NOTE | 2021-09-02 10:49 | DR.PROGNOT ---
Hospital Progress Notes - Progress Note for Day of: Progress Note Date: 09/02/21 - Chief Complaint Chief Complaint: c/o pain donor site .. otherwise no changes .. Hgb 8.. K 3.0. afebrile .. - Past Medical Family Social History Past Med/Fam/Surg Hx: No changes since H&P Allergies: Allergies ciprofloxacin [From Cipro] Allergy (Severe, Verified 08/31/21 07:33) ANAPHALEXIS REACTION divalproex sodium [From Depakote] Allergy (Severe, Verified 08/31/21 07:33) ANAPHALEXIS REACTION benztropine Allergy (Unknown, Verified 08/31/21 07:33) ondansetron [From Zofran] Adverse Reaction (Intermediate, Verified 08/31/21 07:33) NAUSEA and VOMITING - Review Of Systems ROS: No change since H&P - Vital Signs Vital Signs: Temperature 97.9 F Pulse Rate [Left Radial] 67 Pulse Rate 92 Respiratory Rate 20 Blood Pressure [Left Arm] 128/56 Blood Pressure 116/64 O2 Sat by Pulse Oximetry 93 - Physical Exam Oriented: Normal Ear: Normal Nose: Normal Throat: Normal Cardiovascular: Normal : Normal GI:Auscultation: Normal GI: Tenderness: Normal Skin: Normal Musculoskeletal: Normal Psychiatric: Normal Mood Description: Calm, Appropriate Affect: Anxious Speech Pattern: Clear, Appropriate - Laboratory and Diagnostics Result Diagrams: 09/02/21 03:50 09/02/21 03:50 Labs: Laboratory WBC 7.2 X10^3/uL (3.6-10.0) 09/02/21 03:50 RBC 3.08 X10^6/uL (3.5-5.4) L 09/02/21 03:50 Hgb 8.0 g/dL (12.0-16.0) L 09/02/21 03:50 Hct 24.1 % (36.0-47.0) L 09/02/21 03:50 MCV 78.5 fL (80.0-100.0) L 09/02/21 03:50 MCH 25.9 pg (27.0-34.0) L 09/02/21 03:50 MCHC 33.0 g/dL (33.0-35.0) 09/02/21 03:50 RDW 17.9 % (11.6-16.5) H 09/02/21 03:50 Plt Count 325 X10^3/uL (150.0-450.0) 09/02/21 03:50 MPV 8.7 fL (7.4-11.0) 09/02/21 03:50 Neut % (Auto) 67.9 % (42.0-75.0) 09/02/21 03:50 Lymph % (Auto) 19.1 % (21.0-51.0) L 09/02/21 03:50 [place] % (Auto) 9.0 % (0.0-13.0) 09/02/21 03:50 Eos % (Auto) 3.3 % (0.9-2.9) H 09/02/21 03:50 Baso % (Auto) 0.7 % (0.2-1.0) 09/02/21 03:50 Neut # (Auto) 4.9 x10^3/uL (2.2-4.8) H 09/02/21 03:50 Lymph # (Auto) 1.4 X10^3/uL (1.3-2.9) 09/02/21 03:50 [place] # (Auto) 0.6 x10^3/uL (0.3-0.8) 09/02/21 03:50 Eos # (Auto) 0.2 x10^3/uL (0.0-0.2) 09/02/21 03:50 Baso # (Auto) 0.1 X10^3/uL (0.0-0.1) 09/02/21 03:50 Absolute Nucleated RBC 0.1 /100WBC 09/02/21 03:50 Sodium 141 mmol/L (136-145) 09/02/21 03:50 Corrected Sodium TNP 09/02/21 03:50 Potassium 3.0 mmol/L (3.5-5.1) L 09/02/21 03:50 Chloride 105 mmol/L (98-107) 09/02/21 03:50 Carbon Dioxide 23.9 mmol/L (21-32) 09/02/21 03:50 BUN 12 mg/dL (7-18) 09/02/21 03:50 Creatinine 1.15 mg/dL (0.55-1.02) H 09/02/21 03:50 Est GFR (MDRD) Af Amer > 60 (>60) 09/02/21 03:50 Est GFR (MDRD) Non-Af 53 (>60) L 09/02/21 03:50 Glucose 102 mg/dL (65-99) H 09/02/21 03:50 Calcium 8.6 mg/dL (8.5-10.1) 09/02/21 03:50 Corrected Calcium 9.8 mg/dL (8.5-10.1) 09/02/21 03:50 Magnesium 1.9 mg/dL (1.7-2.9) 09/02/21 03:50 Total Bilirubin 0.20 mg/dL (0.2-1.0) 09/02/21 03:50 AST 18 Units/L (15-37) 09/02/21 03:50 ALT 7 Units/L (12-78) L 09/02/21 03:50 Alkaline Phosphatase 204 Units/L (46-116) H 09/02/21 03:50 Total Protein 6.8 g/dL (6.4-8.2) 09/02/21 03:50 Albumin 2.5 g/dL (3.4-5.0) L 09/02/21 03:50 Globulin 4.3 g/dL (2.5-4.5) 09/02/21 03:50 Albumin/Globulin Ratio 0.6 Ratio (1.1-2.1) L 09/02/21 03:50 SARS-CoV-2 (PCR) Negative (NEGATIVE) 08/31/21 12:07 - Assessment and Plan 1: s/p split thickness skin graft to abdominal wall wound .. obesity .. Anxiety . anemia and hypokalemia. same IV ABT . keep dressing intact . OOB
[2021-09-02] MEDS: BENADRYL CAP/TAB 25 MG PO PRN ×2 (15:11→19:21)
[2021-09-02] MEDS: HEMOCYTE-PLUS PO SCH (21:19)
[2021-09-02] MEDS: COLACE CAP 100 MG PO SCH (21:23)
[2021-09-02] MEDS: AMBIEN PO PRN (21:23)
[2021-09-02] MEDS: CELEXA PO SCH (21:24)
[2021-09-03] MEDS: D5 1/2 NS 1,000 ML 1,000 ML IV SCH ×4 (01:15→20:19)
[2021-09-03 04:15] LABS: BASOPHILS % (AUTO) 0.6 % (0.2-1.0); EOSINOPHILS # (AUTO) 0.3 x10^3/uL (0.0-0.2); EOSINOPHILS % (AUTO) 4.4 % (0.9-2.9); HEMATOCRIT 24.3 % (36.0-47.0); LYMPHOCYTES # (AUTO) 1.4 X10^3/uL (1.3-2.9); LYMPHOCYTES % (AUTO) 20.1 % (21.0-51.0); MEAN CORPUSCULAR HEMOGLOBIN 25.9 pg (27.0-34.0); MEAN CORPUSCULAR HGB CONC 32.9 g/dL (33.0-35.0); MEAN CORPUSCULAR VOLUME 78.6 fL (80.0-100.0); MEAN PLATELET VOLUME 8.5 fL (7.4-11.0); MONOCYTES # (AUTO) 0.7 x10^3/uL (0.3-0.8); MONOCYTES % (AUTO) 9.5 % (0.0-13.0); NEUTROPHILS # (AUTO) 4.7 x10^3/uL (2.2-4.8); NEUTROPHILS % (AUTO) 65.4 % (42.0-75.0); RED BLOOD COUNT 3.09 X10^6/uL (3.5-5.4); RED CELL DISTRIBUTION WIDTH 17.8 % (11.6-16.5); WHITE BLOOD COUNT 7.2 X10^3/uL (3.6-10.0)
[2021-09-03 04:24] LABS: ALANINE AMINOTRANSFERASE 9 Units/L (12-78); ALBUMIN 2.6 g/dL (3.4-5.0); ALKALINE PHOSPHATASE 250 Units/L (46-116); ASPARTATE AMINO TRANSFERASE 29 Units/L (15-37); BLOOD UREA NITROGEN 7 mg/dL (7-18); CALCIUM 8.3 mg/dL (8.5-10.1); CARBON DIOXIDE 21.4 mmol/L (21-32); CHLORIDE 106 mmol/L (98-107); COR CA(FOR HYPOALB) 9.4 mg/dL (8.5-10.1); SODIUM 140 mmol/L (136-145); TOTAL PROTEIN 6.2 g/dL (6.4-8.2)
[2021-09-03 04:31] LABS: CREATININE 1.08 mg/dL (0.55-1.02); eGFR NON BLACK RACES 57 (>60)
[2021-09-03] MEDS: MORPHINE SULFATE INJ 2 MG INJ IVP PRN ×4 (05:03→20:19)
[2021-09-03] MEDS: BENADRYL CAP/TAB 25 MG PO PRN (05:04)
[2021-09-03] MEDS: ANCEF VIAL 1 GRAM 1 G in NS 100 ML IV 100 ML IV SCH ×3 (05:50→20:59)
[2021-09-03] MEDS: NEURONTIN TAB 600 MG PO SCH ×4 (05:50→21:00)
[2021-09-03] MEDS: K-DUR TAB 20 MEQ PO PRN (05:51)
[2021-09-03] MEDS: CREON PO SCH ×3 (06:03→18:00)
[2021-09-03] MEDS: LOVENOX INJ 40 MG SYR SC SCH (09:39)
[2021-09-03] MEDS: COREG TAB 3.125 MG PO SCH ×2 (09:39→20:18)
[2021-09-03] MEDS: TOPAMAX TAB 100 MG PO SCH ×2 (09:40→20:18)
[2021-09-03] MEDS: MYSOLINE PO SCH ×2 (09:40→20:18)
--- NOTE | 2021-09-03 11:55 | DR.PROGNOT ---
Hospital Progress Notes - Progress Note for Day of: Progress Note Date: 09/03/21 - Chief Complaint Chief Complaint: c/o severe pain donor site .. otherwise no changes .. Hgb 8.. K 3.0. afebrile .. dressing Lt leg was changed .. Xeroform kept in place .. - Past Medical Family Social History Past Med/Fam/Surg Hx: No changes since H&P Allergies: Allergies ciprofloxacin [From Cipro] Allergy (Severe, Verified 08/31/21 07:33) ANAPHALEXIS REACTION divalproex sodium [From Depakote] Allergy (Severe, Verified 08/31/21 07:33) ANAPHALEXIS REACTION benztropine Allergy (Unknown, Verified 08/31/21 07:33) ondansetron [From Zofran] Adverse Reaction (Intermediate, Verified 08/31/21 07:33) NAUSEA and VOMITING - Review Of Systems ROS: No change since H&P - Vital Signs Vital Signs: Temperature 98.1 F Pulse Rate [Left Radial] 63 Pulse Rate 60 Respiratory Rate 18 Blood Pressure [Left Arm] 128/69 Blood Pressure 116/64 O2 Sat by Pulse Oximetry 96 - Physical Exam Oriented: Normal Ear: Normal Nose: Normal Throat: Normal Cardiovascular: Normal : Normal GI:Auscultation: Normal GI: Tenderness: Normal Skin: Normal Musculoskeletal: Normal Psychiatric: Normal Mood Description: Calm, Appropriate Affect: Anxious Speech Pattern: Clear, Appropriate - Laboratory and Diagnostics Result Diagrams: 09/03/21 03:30 09/03/21 03:30 Labs: Laboratory WBC 7.2 X10^3/uL (3.6-10.0) 09/03/21 03:30 RBC 3.09 X10^6/uL (3.5-5.4) L 09/03/21 03:30 Hgb 8.0 g/dL (12.0-16.0) L 09/03/21 03:30 Hct 24.3 % (36.0-47.0) L 09/03/21 03:30 MCV 78.6 fL (80.0-100.0) L 09/03/21 03:30 MCH 25.9 pg (27.0-34.0) L 09/03/21 03:30 MCHC 32.9 g/dL (33.0-35.0) L 09/03/21 03:30 RDW 17.8 % (11.6-16.5) H 09/03/21 03:30 Plt Count 359 X10^3/uL (150.0-450.0) 09/03/21 03:30 MPV 8.5 fL (7.4-11.0) 09/03/21 03:30 Neut % (Auto) 65.4 % (42.0-75.0) 09/03/21 03:30 Lymph % (Auto) 20.1 % (21.0-51.0) L 09/03/21 03:30 [place] % (Auto) 9.5 % (0.0-13.0) 09/03/21 03:30 Eos % (Auto) 4.4 % (0.9-2.9) H 09/03/21 03:30 Baso % (Auto) 0.6 % (0.2-1.0) 09/03/21 03:30 Neut # (Auto) 4.7 x10^3/uL (2.2-4.8) 09/03/21 03:30 Lymph # (Auto) 1.4 X10^3/uL (1.3-2.9) 09/03/21 03:30 [place] # (Auto) 0.7 x10^3/uL (0.3-0.8) 09/03/21 03:30 Eos # (Auto) 0.3 x10^3/uL (0.0-0.2) H 09/03/21 03:30 Baso # (Auto) 0.0 X10^3/uL (0.0-0.1) 09/03/21 03:30 Absolute Nucleated RBC 0.0 /100WBC 09/03/21 03:30 Sodium 140 mmol/L (136-145) 09/03/21 03:30 Corrected Sodium TNP 09/03/21 03:30 Potassium 3.5 mmol/L (3.5-5.1) 09/03/21 03:30 Chloride 106 mmol/L (98-107) 09/03/21 03:30 Carbon Dioxide 21.4 mmol/L (21-32) 09/03/21 03:30 BUN 7 mg/dL (7-18) 09/03/21 03:30 Creatinine 1.08 mg/dL (0.55-1.02) H 09/03/21 03:30 Est GFR (MDRD) Af Amer > 60 (>60) 09/03/21 03:30 Est GFR (MDRD) Non-Af 57 (>60) L 09/03/21 03:30 Glucose 101 mg/dL (65-99) H 09/03/21 03:30 Calcium 8.3 mg/dL (8.5-10.1) L 09/03/21 03:30 Corrected Calcium 9.4 mg/dL (8.5-10.1) 09/03/21 03:30 Magnesium 2.0 mg/dL (1.7-2.9) 09/03/21 03:30 Total Bilirubin 0.10 mg/dL (0.2-1.0) L 09/03/21 03:30 AST 29 Units/L (15-37) 09/03/21 03:30 ALT 9 Units/L (12-78) L 09/03/21 03:30 Alkaline Phosphatase 250 Units/L (46-116) H 09/03/21 03:30 Total Protein 6.2 g/dL (6.4-8.2) L 09/03/21 03:30 Albumin 2.6 g/dL (3.4-5.0) L 09/03/21 03:30 Globulin 3.6 g/dL (2.5-4.5) 09/03/21 03:30 Albumin/Globulin Ratio 0.7 Ratio (1.1-2.1) L 09/03/21 03:30 SARS-CoV-2 (PCR) Negative (NEGATIVE) 08/31/21 12:07 - Assessment and Plan 1: s/p split thickness skin graft to abdominal wall wound .. obesity .. Anxiety . anemia and hypokalemia. same IV ABT . keep abdominal wound dressing intact . OOB
[2021-09-03] MEDS: TORADOL 30 MG VIAL IVP PRN (12:04)
[2021-09-03] MEDS: COLACE CAP 100 MG PO SCH (20:17)
[2021-09-03] MEDS: CELEXA PO SCH (20:17)
[2021-09-03] MEDS: HEMOCYTE-PLUS PO SCH (20:19)
[2021-09-03] MEDS: AMBIEN PO PRN (20:35)
[2021-09-04] MEDS: MORPHINE SULFATE INJ 2 MG INJ IVP PRN ×6 (01:15→22:05)
[2021-09-04] MEDS: D5 1/2 NS 1,000 ML 1,000 ML IV SCH ×2 (05:15→16:07)
[2021-09-04] MEDS: NEURONTIN TAB 600 MG PO SCH ×3 (05:16→22:04)
[2021-09-04] MEDS: ANCEF VIAL 1 GRAM 1 G in NS 100 ML IV 100 ML IV SCH ×3 (05:16→22:05)
[2021-09-04 05:25] LABS: BASOPHILS % (AUTO) 0.4 % (0.2-1.0); EOSINOPHILS # (AUTO) 0.3 x10^3/uL (0.0-0.2); HEMATOCRIT 23.8 % (36.0-47.0); HEMOGLOBIN 7.9 g/dL (12.0-16.0); LYMPHOCYTES # (AUTO) 1.1 X10^3/uL (1.3-2.9); LYMPHOCYTES % (AUTO) 15.4 % (21.0-51.0); MEAN CORPUSCULAR HGB CONC 33.1 g/dL (33.0-35.0); MEAN CORPUSCULAR VOLUME 78.7 fL (80.0-100.0); MEAN PLATELET VOLUME 8.4 fL (7.4-11.0); MONOCYTES # (AUTO) 0.6 x10^3/uL (0.3-0.8); MONOCYTES % (AUTO) 7.9 % (0.0-13.0); NEUTROPHILS # (AUTO) 5.2 x10^3/uL (2.2-4.8); NEUTROPHILS % (AUTO) 72.3 % (42.0-75.0); RED BLOOD COUNT 3.03 X10^6/uL (3.5-5.4); RED CELL DISTRIBUTION WIDTH 17.7 % (11.6-16.5); WHITE BLOOD COUNT 7.3 X10^3/uL (3.6-10.0)
[2021-09-04 05:45] LABS: ALANINE AMINOTRANSFERASE 12 Units/L (12-78); ALBUMIN 2.5 g/dL (3.4-5.0); ALKALINE PHOSPHATASE 239 Units/L (46-116); ASPARTATE AMINO TRANSFERASE 21 Units/L (15-37); BLOOD UREA NITROGEN 7 mg/dL (7-18); CALCIUM 8.3 mg/dL (8.5-10.1); CARBON DIOXIDE 23.2 mmol/L (21-32); CHLORIDE 107 mmol/L (98-107); COR CA(FOR HYPOALB) 9.5 mg/dL (8.5-10.1); CREATININE 1.04 mg/dL (0.55-1.02); SODIUM 140 mmol/L (136-145); TOTAL PROTEIN 5.8 g/dL (6.4-8.2); eGFR NON BLACK RACES 60 (>60)
[2021-09-04] MEDS: CREON PO SCH ×3 (08:00→16:08)
[2021-09-04] MEDS: COREG TAB 3.125 MG PO SCH ×2 (08:43→22:03)
[2021-09-04] MEDS: LOVENOX INJ 40 MG SYR SC SCH (08:43)
[2021-09-04] MEDS: MYSOLINE PO SCH ×2 (08:44→21:04)
[2021-09-04] MEDS: TOPAMAX TAB 100 MG PO SCH ×2 (08:44→22:05)
--- NOTE | 2021-09-04 09:40 | DR.PROGNOT ---
Hospital Progress Notes - Progress Note for Day of: Progress Note Date: 09/04/21 - Chief Complaint Chief Complaint: still c/o severe pain at the donor site .. otherwise no changes .. Hgb 8.. K 3.4. afebrile .. dressing Lt leg was changed .. Xeroform kept in place .. - Past Medical Family Social History Past Med/Fam/Surg Hx: No changes since H&P Allergies: Allergies ciprofloxacin [From Cipro] Allergy (Severe, Verified 08/31/21 07:33) ANAPHALEXIS REACTION divalproex sodium [From Depakote] Allergy (Severe, Verified 08/31/21 07:33) ANAPHALEXIS REACTION benztropine Allergy (Unknown, Verified 08/31/21 07:33) ondansetron [From Zofran] Adverse Reaction (Intermediate, Verified 08/31/21 07:33) NAUSEA and VOMITING - Review Of Systems ROS: No change since H&P - Vital Signs Vital Signs: Temperature 98.3 F Pulse Rate [Left Radial] 61 Pulse Rate 60 Respiratory Rate 20 Blood Pressure [Left Arm] 111/58 Blood Pressure 116/64 O2 Sat by Pulse Oximetry 96 - Physical Exam Oriented: Normal Ear: Normal Nose: Normal Throat: Normal Cardiovascular: Normal : Normal GI:Auscultation: Normal GI: Tenderness: Normal Skin: Normal Musculoskeletal: Normal Psychiatric: Normal Mood Description: Calm, Appropriate Affect: Anxious Speech Pattern: Clear, Appropriate - Laboratory and Diagnostics Result Diagrams: 09/04/21 04:30 09/04/21 04:30 Labs: Laboratory WBC 7.3 X10^3/uL (3.6-10.0) 09/04/21 04:30 RBC 3.03 X10^6/uL (3.5-5.4) L 09/04/21 04:30 Hgb 7.9 g/dL (12.0-16.0) L 09/04/21 04:30 Hct 23.8 % (36.0-47.0) L 09/04/21 04:30 MCV 78.7 fL (80.0-100.0) L 09/04/21 04:30 MCH 26.0 pg (27.0-34.0) L 09/04/21 04:30 MCHC 33.1 g/dL (33.0-35.0) 09/04/21 04:30 RDW 17.7 % (11.6-16.5) H 09/04/21 04:30 Plt Count 323 X10^3/uL (150.0-450.0) 09/04/21 04:30 MPV 8.4 fL (7.4-11.0) 09/04/21 04:30 Neut % (Auto) 72.3 % (42.0-75.0) 09/04/21 04:30 Lymph % (Auto) 15.4 % (21.0-51.0) L 09/04/21 04:30 [place] % (Auto) 7.9 % (0.0-13.0) 09/04/21 04:30 Eos % (Auto) 4.0 % (0.9-2.9) H 09/04/21 04:30 Baso % (Auto) 0.4 % (0.2-1.0) 09/04/21 04:30 Neut # (Auto) 5.2 x10^3/uL (2.2-4.8) H 09/04/21 04:30 Lymph # (Auto) 1.1 X10^3/uL (1.3-2.9) L 09/04/21 04:30 [place] # (Auto) 0.6 x10^3/uL (0.3-0.8) 09/04/21 04:30 Eos # (Auto) 0.3 x10^3/uL (0.0-0.2) H 09/04/21 04:30 Baso # (Auto) 0.0 X10^3/uL (0.0-0.1) 09/04/21 04:30 Absolute Nucleated RBC 0.0 /100WBC 09/04/21 04:30 Sodium 140 mmol/L (136-145) 09/04/21 04:30 Corrected Sodium TNP 09/04/21 04:30 Potassium 3.4 mmol/L (3.5-5.1) L 09/04/21 04:30 Chloride 107 mmol/L (98-107) 09/04/21 04:30 Carbon Dioxide 23.2 mmol/L (21-32) 09/04/21 04:30 BUN 7 mg/dL (7-18) 09/04/21 04:30 Creatinine 1.04 mg/dL (0.55-1.02) H 09/04/21 04:30 Est GFR (MDRD) Af Amer > 60 (>60) 09/04/21 04:30 Est GFR (MDRD) Non-Af 60 (>60) 09/04/21 04:30 Glucose 90 mg/dL (65-99) 09/04/21 04:30 Calcium 8.3 mg/dL (8.5-10.1) L 09/04/21 04:30 Corrected Calcium 9.5 mg/dL (8.5-10.1) 09/04/21 04:30 Magnesium 2.0 mg/dL (1.7-2.9) 09/03/21 03:30 Total Bilirubin 0.10 mg/dL (0.2-1.0) L 09/04/21 04:30 AST 21 Units/L (15-37) 09/04/21 04:30 ALT 12 Units/L (12-78) 09/04/21 04:30 Alkaline Phosphatase 239 Units/L (46-116) H 09/04/21 04:30 Total Protein 5.8 g/dL (6.4-8.2) L 09/04/21 04:30 Albumin 2.5 g/dL (3.4-5.0) L 09/04/21 04:30 Globulin 3.3 g/dL (2.5-4.5) 09/04/21 04:30 Albumin/Globulin Ratio 0.8 Ratio (1.1-2.1) L 09/04/21 04:30 SARS-CoV-2 (PCR) Negative (NEGATIVE) 08/31/21 12:07 - Assessment and Plan 1: s/p split thickness skin graft to abdominal wall wound .. obesity .. Anxiety . anemia and hypokalemia. same IV ABT . keep abdominal wound dressing intact . OOB . t d/c in AM
[2021-09-04] MEDS: K-DUR TAB 20 MEQ PO PRN ×2 (12:11→16:11)
[2021-09-04] MEDS: CELEXA PO SCH (21:03)
[2021-09-04] MEDS: COLACE CAP 100 MG PO SCH (21:04)
[2021-09-04] MEDS: AMBIEN PO PRN (22:03)
[2021-09-04] MEDS: HEMOCYTE-PLUS PO SCH (22:04)
[2021-09-05] MEDS: D5 1/2 NS 1,000 ML 1,000 ML IV SCH ×4 (01:43→20:00)
[2021-09-05] MEDS: MORPHINE SULFATE INJ 2 MG INJ IVP PRN ×5 (02:07→20:00)
[2021-09-05] MEDS: ANCEF VIAL 1 GRAM 1 G in NS 100 ML IV 100 ML IV SCH ×3 (05:14→21:00)
[2021-09-05] MEDS: NEURONTIN TAB 600 MG PO SCH ×3 (05:14→21:00)
[2021-09-05 05:26] LABS: BASOPHILS # (AUTO) 0.1 X10^3/uL (0.0-0.1); BASOPHILS % (AUTO) 0.9 % (0.2-1.0); EOSINOPHILS # (AUTO) 0.3 x10^3/uL (0.0-0.2); EOSINOPHILS % (AUTO) 3.7 % (0.9-2.9); HEMATOCRIT 23.8 % (36.0-47.0); HEMOGLOBIN 7.9 g/dL (12.0-16.0); LYMPHOCYTES # (AUTO) 1.4 X10^3/uL (1.3-2.9); LYMPHOCYTES % (AUTO) 20.7 % (21.0-51.0); MEAN CORPUSCULAR HEMOGLOBIN 26.1 pg (27.0-34.0); MEAN CORPUSCULAR HGB CONC 33.1 g/dL (33.0-35.0); MEAN CORPUSCULAR VOLUME 78.8 fL (80.0-100.0); MEAN PLATELET VOLUME 8.1 fL (7.4-11.0); MONOCYTES # (AUTO) 0.6 x10^3/uL (0.3-0.8); MONOCYTES % (AUTO) 9.2 % (0.0-13.0); NEUTROPHILS # (AUTO) 4.4 x10^3/uL (2.2-4.8); NEUTROPHILS % (AUTO) 65.5 % (42.0-75.0); RED BLOOD COUNT 3.02 X10^6/uL (3.5-5.4); RED CELL DISTRIBUTION WIDTH 17.6 % (11.6-16.5); WHITE BLOOD COUNT 6.8 X10^3/uL (3.6-10.0)
[2021-09-05 05:36] LABS: ALANINE AMINOTRANSFERASE < 6 Units/L (12-78); ALBUMIN 2.3 g/dL (3.4-5.0); ALKALINE PHOSPHATASE 211 Units/L (46-116); ASPARTATE AMINO TRANSFERASE 21 Units/L (15-37); BLOOD UREA NITROGEN 6 mg/dL (7-18); CALCIUM 8.4 mg/dL (8.5-10.1); CARBON DIOXIDE 23.3 mmol/L (21-32); CHLORIDE 108 mmol/L (98-107); COR CA(FOR HYPOALB) 9.8 mg/dL (8.5-10.1); CREATININE 0.91 mg/dL (0.55-1.02); SODIUM 139 mmol/L (136-145); TOTAL PROTEIN 6.2 g/dL (6.4-8.2); eGFR NON BLACK RACES > 60 (>60)
[2021-09-05] MEDS: K-DUR TAB 20 MEQ PO PRN (05:54)
[2021-09-05] MEDS: CREON PO SCH ×3 (08:00→18:00)
[2021-09-05] MEDS: MYSOLINE PO SCH ×2 (09:30→20:00)
[2021-09-05] MEDS: TOPAMAX TAB 100 MG PO SCH ×2 (09:30→21:00)
[2021-09-05] MEDS: LOVENOX INJ 40 MG SYR SC SCH (09:30)
[2021-09-05] MEDS: COREG TAB 3.125 MG PO SCH ×2 (09:30→20:00)
[2021-09-05] MEDS: CELEXA PO SCH (20:00)
[2021-09-05] MEDS: COLACE CAP 100 MG PO SCH (20:00)
[2021-09-05] MEDS: HEMOCYTE-PLUS PO SCH (20:00)
[2021-09-05] MEDS: AMBIEN PO PRN (21:30)
[2021-09-06] MEDS: TORADOL 30 MG VIAL IVP PRN (00:35)
[2021-09-06] MEDS: D5 1/2 NS 1,000 ML 1,000 ML IV SCH (05:21)
[2021-09-06] MEDS: ANCEF VIAL 1 GRAM 1 G in NS 100 ML IV 100 ML IV SCH (05:21)
[2021-09-06] MEDS: NEURONTIN TAB 600 MG PO SCH (05:21)
[2021-09-06] MEDS: MORPHINE SULFATE INJ 2 MG INJ IVP PRN (06:35)
[2021-09-06] MEDS: CREON PO SCH (07:52)
[2021-09-06] MEDS: COREG TAB 3.125 MG PO SCH (10:27)
[2021-09-06] MEDS: LOVENOX INJ 40 MG SYR SC SCH (10:27)
[2021-09-06] MEDS: PERCOCET TAB 5/325 MG PO PRN (10:27)
[2021-09-06] MEDS: MYSOLINE PO SCH (10:28)
[2021-09-06] MEDS: TOPAMAX TAB 100 MG PO SCH (10:28)
[2021-09-06 11:02] VITALS: BP 108/55
== END 2021-09-06 11:30 | disposition home or self-care (01) | DRG 923 ==
LOC: SURG1 07:03 → MED/SURG 12:28
PROVIDERS: ADMIT Surgery; ATTEND Surgery
DX: F32.89 Other specified depressive episodes; X58.XXXS Exposure to other specified factors, sequela; S31.109S Unspecified open wound of abdominal wall, unspecified quadrant without penetration into peritoneal cavity, sequela; F41.8 Other specified anxiety disorders; Y92.89 Other specified places as the place of occurrence of the external cause; D64.89 Other specified anemias; E87.6 Hypokalemia; T81.49XS Infection following a procedure, other surgical site, sequela; E66.01 Morbid (severe) obesity due to excess calories; Z20.822 Contact with and (suspected) exposure to COVID-19

== ENCOUNTER 2022-06-17 11:40 | Inpatient (IN) ==
[2022-06-17 17:02] LABS: BASOPHILS # (AUTO) 0.1 X10^3/uL (0.0-0.1); BASOPHILS % (AUTO) 0.8 % (0.2-1.0); EOSINOPHILS # (AUTO) 0.3 x10^3/uL (0.0-0.2); EOSINOPHILS % (AUTO) 2.8 % (0.9-2.9); HEMATOCRIT 30.7 % (36.0-47.0); HEMOGLOBIN 9.8 g/dL (12.0-16.0); LYMPHOCYTES # (AUTO) 1.1 X10^3/uL (1.3-2.9); LYMPHOCYTES % (AUTO) 11.6 % (21.0-51.0); MEAN CORPUSCULAR HEMOGLOBIN 24.1 pg (27.0-34.0); MEAN CORPUSCULAR HGB CONC 31.8 g/dL (33.0-35.0); MEAN CORPUSCULAR VOLUME 75.8 fL (80.0-100.0); MEAN PLATELET VOLUME 7.8 fL (7.4-11.0); MONOCYTES # (AUTO) 0.7 x10^3/uL (0.3-0.8); MONOCYTES % (AUTO) 6.8 % (0.0-13.0); NEUTROPHILS # (AUTO) 7.7 x10^3/uL (2.2-4.8); RED BLOOD COUNT 4.05 X10^6/uL (3.5-5.4); RED CELL DISTRIBUTION WIDTH 17.4 % (11.6-16.5); WHITE BLOOD COUNT 9.9 X10^3/uL (3.6-10.0)
[2022-06-17 17:14] LABS: ALANINE AMINOTRANSFERASE 9 Units/L (12-78); ALBUMIN 3.2 g/dL (3.4-5.0); ALKALINE PHOSPHATASE 113 Units/L (46-116); ASPARTATE AMINO TRANSFERASE 15 Units/L (15-37); BLOOD UREA NITROGEN 13 mg/dL (7-18); CALCIUM 9.2 mg/dL (8.5-10.1); CARBON DIOXIDE 31.2 mmol/L (21-32); CHLORIDE 101 mmol/L (98-107); COR CA(FOR HYPOALB) 9.8 mg/dL (8.5-10.1); CREATININE 1.32 mg/dL (0.55-1.02); SODIUM 140 mmol/L (136-145); TOTAL PROTEIN 7.8 g/dL (6.4-8.2); eGFR NON BLACK RACES 45 (>60)
--- NOTE | 2022-06-17 17:24 | EKG ---
Test Reason : abdominal wall wound infection Blood Pressure : */* mmHG Vent. Rate : 103 BPM Atrial Rate : * BPM P-R Int : * ms QRS Dur : 54 ms QT Int : 324 ms P-R-T Axes : * 20 28 degrees QTc Int : 424 ms Atrial flutter with 4:1 block Low voltage QRS Nonspecific T wave abnormality Abnormal ECG No previous ECGs available Confirmed by Nicola Brown ([id number]) on 06/17/2022 6:20:18 PM Referred By: Confirmed By: Nicola Brown
[2022-06-17] MEDS ORDERED: NS 500 ML IV 500 ML IV ONE (17:34)
[2022-06-17] MEDS ORDERED: DULCOLAX TAB EC 5 MG PO PRN (18:10)
[2022-06-17] MEDS ORDERED: MOTRIN TAB 800 MG PO PRN (18:10)
[2022-06-17] MEDS ORDERED: DULCOLAX SUPPOSITORY 10 MG RECTAL PRN (18:10)
[2022-06-17] MEDS ORDERED: HYDROCORTISONE CRM 1% TOP PRN (18:10)
[2022-06-17] MEDS: CLEOCIN 600 MG IV PREMIX 600 MG/50 ML BAG IV SCH ×2 (18:12→21:48)
[2022-06-17] MEDS ORDERED: IMODIUM CAP 2 MG PO PRN (18:19)
[2022-06-17] MEDS ORDERED: MYLICON TAB 80 MG CHEW PO PRN (18:29)
[2022-06-17] MEDS ORDERED: TOPAMAX TAB 100 MG PO PRN (18:32)
[2022-06-17] MEDS: MELATONIN PO SCH (21:47)
[2022-06-17] MEDS: COREG TAB 3.125 MG PO SCH (21:47)
[2022-06-17] MEDS: NEURONTIN TAB 600 MG PO SCH (21:47)
[2022-06-17] MEDS: PROTONIX TAB 40 MG PO SCH (21:47)
[2022-06-17] MEDS: REGLAN TAB 10 MG PO SCH (21:47)
[2022-06-17] MEDS: AMBIEN PO SCH (21:47)
[2022-06-17] MEDS: SUBOXONE FILM SL SCH (22:33)
[2022-06-17] MEDS: PATIENT'S HOME MEDICATION PO SCH (22:33)
[2022-06-18] MEDS: SUBOXONE FILM SL SCH (05:39)
[2022-06-18] MEDS: REGLAN TAB 10 MG PO SCH ×4 (05:48→20:20)
[2022-06-18] MEDS: NEURONTIN TAB 600 MG PO SCH ×3 (05:48→21:57)
[2022-06-18] MEDS: CLEOCIN 600 MG IV PREMIX 600 MG/50 ML BAG IV SCH ×3 (05:48→21:57)
[2022-06-18 05:59] LABS: BASOPHILS % (AUTO) 0.5 % (0.2-1.0); EOSINOPHILS # (AUTO) 0.2 x10^3/uL (0.0-0.2); EOSINOPHILS % (AUTO) 2.7 % (0.9-2.9); HEMATOCRIT 27.3 % (36.0-47.0); HEMOGLOBIN 8.7 g/dL (12.0-16.0); LYMPHOCYTES # (AUTO) 1.1 X10^3/uL (1.3-2.9); LYMPHOCYTES % (AUTO) 13.3 % (21.0-51.0); MEAN CORPUSCULAR HEMOGLOBIN 24.1 pg (27.0-34.0); MEAN CORPUSCULAR VOLUME 75.3 fL (80.0-100.0); MEAN PLATELET VOLUME 8.3 fL (7.4-11.0); MONOCYTES # (AUTO) 0.6 x10^3/uL (0.3-0.8); MONOCYTES % (AUTO) 7.6 % (0.0-13.0); NEUTROPHILS # (AUTO) 6.5 x10^3/uL (2.2-4.8); NEUTROPHILS % (AUTO) 75.9 % (42.0-75.0); RED BLOOD COUNT 3.62 X10^6/uL (3.5-5.4); WHITE BLOOD COUNT 8.5 X10^3/uL (3.6-10.0)
[2022-06-18 06:14] LABS: ALANINE AMINOTRANSFERASE 10 Units/L (12-78); ALBUMIN 2.6 g/dL (3.4-5.0); ALKALINE PHOSPHATASE 99 Units/L (46-116); ASPARTATE AMINO TRANSFERASE 22 Units/L (15-37); BLOOD UREA NITROGEN 12 mg/dL (7-18); CALCIUM 8.6 mg/dL (8.5-10.1); CARBON DIOXIDE 30.1 mmol/L (21-32); CHLORIDE 104 mmol/L (98-107); COR CA(FOR HYPOALB) 9.7 mg/dL (8.5-10.1); CREATININE 1.23 mg/dL (0.55-1.02); SODIUM 141 mmol/L (136-145); TOTAL PROTEIN 6.6 g/dL (6.4-8.2); eGFR NON BLACK RACES 49 (>60)
[2022-06-18] MEDS ORDERED: KLOR-CON PO PRN (06:55)
[2022-06-18] MEDS ORDERED: K-RIDER 10 MEQ/NS 100 ML 10 MEQ/100 ML BAG IV PRN (06:55)
[2022-06-18] MEDS ORDERED: POTASSIUM CHL 60 MEQ/NS 0.45% 500 ML IV PRN (06:55)
[2022-06-18] MEDS ORDERED: POTASSIUM CHLORIDE LIQ 20 MEQ UDC PO PRN (06:55)
[2022-06-18] MEDS ORDERED: POTASSIUM CHL 40 MEQ/NS 0.45% 500 ML IV PRN (06:55)
[2022-06-18] MEDS ORDERED: MICRO K EXTEN CAP 10 MEQ PO PRN (06:55)
--- NOTE | 2022-06-18 07:05 | RAD ---
HISTORYAbdominal wall wound infectionSTUDYChest AP [id number] t is enlarged. No congestive heart failure is noted. No acute alveolar infiltrates or pleural effusions are identified. Bony thorax is unremarkable.IMPRESSIONMild cardiomegaly without congestive heart failureLungs clearElectronically signed by: WOLFGANG LÓPEZ (Jun 18, 2022 07:03:43)
--- NOTE | 2022-06-18 08:57 | DR.CONSULT ---
CONSULT Consultation for Day of: Date: 06/18/22 Chief Complaint Chief Complaint: Medical management of General medical problems Allergies Allergies Allergy/AdvReac Type Severity Reaction Status Date / Time ciprofloxacin [From Cipro] Allergy Severe ANAPHALEXIS Verified 08/31/21 07:33 REACTION divalproex sodium Allergy Severe ANAPHALEXIS Verified 08/31/21 07:33 [From Depakote] REACTION ondansetron [From Zofran] Allergy Intermediate NAUSEA and Unverified 08/31/21 07:33 VOMITING benztropine Allergy Unknown Verified 08/31/21 07:33 sumatriptan [Imitrex] Allergy Unknown Verified 03/29/21 10:08 History of Present Illness History of Present Illness: This is a pleasant 52-year-old white female who has been hospitalized here for an anterior abdominal skin infection secondary to MRSA. She has a history of COPD, GERD, hypertension, bipolar disorder, liver disease, opioid use disorder, anemia and anxiety. This morning she is complaining that her anxiety is getting to her and that she feels like the cifuentes are closing in on her. 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 She has a primary care physician in [place], [place] who she sees for her primary care needs. Thank you for consult I will follow with you. Past Medical History Past Medical History: Anemia, Anxiety, COPD, Depression, GERD, Hypertension and Liver Disease Additional Medical History: Bipolar disorder, history of opioid abuse Past Surgical History Surgical History: Abdominal Surgery, Bowel Resection, , Cholecystectomy, [employer] Surgery and Hysterectomy Social History Does patient currently use any type of tobacco product: No Have you used tobacco products in the last 12 months: No Type of Tobacco Use: None Does any household member use tobacco: No Alcohol Use: None Drug Use: None Medications Home Medications: ciprofloxacin [From Cipro] Allergy (Severe, Verified 08/31/21 07:33) ANAPHALEXIS REACTION divalproex sodium [From Depakote] Allergy (Severe, Verified 08/31/21 07:33) ANAPHALEXIS REACTION ondansetron [From Zofran] Allergy (Intermediate, Unverified 08/31/21 07:33) NAUSEA and VOMITING benztropine Allergy (Unknown, Verified 08/31/21 07:33) sumatriptan [Imitrex] Allergy (Unknown, Verified 03/29/21 10:08) CONTINUE taking the following medications buprenorphine 8 mg-naloxone 2 mg sublingual film (Suboxone) 1 film sublingual TID 06/17/22 [History] diphenhydramine HCl 25 mg capsule 25 mg PO TID PRN 06/17/22 [History] potassium chloride 10 mEq tablet,extended release 1 tab PO QDAY 06/17/22 [History] semaglutide (weight loss) 0.25 mg/0.5 mL subcutaneous pen injector (Wegovy) 0.25 mg subcut WEEKLY weight loss 06/17/22 [History] Review of Systems Constitutional: No Symptoms Reported Eyes: No Symptoms Reported ENT: No Symptoms Reported Respiratory: No Symptoms Reported Cardiovascular: No Symptoms Reported Gastrointestinal: Constipation Genitourinary: No Symptoms Reported Musculoskeletal: No Symptoms Reported Skin: Wound Neurological: No Symptoms Reported Physical Exam Vital Signs: Temperature 98.8 F Pulse Rate [Left Brachial] 66 Respiratory Rate 20 Blood Pressure [Left Arm] 114/65 Blood Pressure 89/57 O2 Sat by Pulse Oximetry 91 Oriented: Normal, Time, Person and Place; negative Not Oriented Eyes: Normal Ear: Normal Nose: Normal Respiratory: Clear Throughout Cardiovascular: Normal Auscultation: Bowel Sounds: Normal Palpation: Normal Tenderness: Normal Skin: Hot and Wound Musculoskeletal: Normal Psychiatric: Normal Mood Description: Calm and Appropriate Affect: Normal Speech Pattern: Clear and Appropriate; negative Unclear, Inappropriate, Delayed or Slurred Plan (1) Bipolar disorder: Status: Acute Plan: Resume quetiapine and Vraylar. (2) Infection of skin due to methicillin resistant Staphylococcus aureus (MRSA): Status: Acute Plan: Treatment per general surgery. (3) Anemia: Status: Acute Qualifiers: Anemia type: iron deficiency Iron deficiency anemia type: chronic blood loss Qualified Code(s): D50.0 - Iron deficiency anemia secondary to blood loss (chronic) Plan: Check anemia profile (4) Depression: Status: None Plan: Continue citalopram 20 mg daily (5) Benign hypertension: Status: None Plan: Continue Coreg (6) Opioid use disorder: Status: Acute Plan: Continue Suboxone.
[2022-06-18 09:32] VITALS: BMI 49.6
[2022-06-18] MEDS: MICRO K EXTEN CAP 10 MEQ PO SCH (09:33)
[2022-06-18] MEDS: LINZESS PO SCH (09:33)
[2022-06-18] MEDS: CELEXA PO SCH (09:34)
[2022-06-18] MEDS: MYSOLINE PO SCH (09:34)
[2022-06-18] MEDS: CREON PO SCH ×3 (09:34→17:55)
[2022-06-18] MEDS: COREG TAB 3.125 MG PO SCH ×2 (09:34→20:20)
[2022-06-18] MEDS: LASIX PO SCH ×2 (09:34→16:24)
[2022-06-18] MEDS: TAB-A-VITE PO SCH (09:34)
[2022-06-18] MEDS: PROTONIX TAB 40 MG PO SCH ×2 (09:34→20:21)
[2022-06-18] MEDS: PATIENT'S HOME MEDICATION PO SCH ×2 (09:35→21:56)
[2022-06-18] MEDS: HEMOCYTE-PLUS PO SCH (09:35)
[2022-06-18] MEDS: ZANAFLEX PO PRN (09:39)
[2022-06-18] MEDS: K-DUR TAB 20 MEQ PO PRN (09:46)
[2022-06-18] MEDS: MAGNESIUM SULFATE 1 GRAM/100 mL PREMIX 1 G/100 ML BAG IV PRN ×2 (09:47→11:16)
--- NOTE | 2022-06-18 12:49 | CT ---
HISTORYABDOMINAL WALL ABSCESSSTUDYABDOMEN/PELVIS W/O CONCOMPARISONCT abdomen and pelvis 01/03/2021TECHNIQUEMultiple CT axial images of the abdomen and pelvis were obtained without IV contrast. Coronal and sagittal images were reconstructed. Dose reduction techniques included Automated Exposure Control (AEC) and adjustment of mA and kV.FINDINGSThe lung bases are clear. Heart size is normal.The liver is normal in size and configuration. Probable Bertha's lobe normal variant.Surgical clips are present in the gallbladder fossa from a cholecystectomy. The spleen is normal in size and shape. Calcified granuloma in the spleen.The adrenal glands are normal. The pancreas is normal.The kidneys have normal size and shape. There is no hydronephrosis or significant perirenal edema. The bladder is normally distended. It has no wall thickening or perivesical edema.The bowel is not dilated. There is no wall thickening in the bowel or edema around the bowel. The patient has had a right hemicolectomy. No nodularity or mass at the surgical anastomosis.Mesh is present in the anterior abdominal wall from prior hernia repair. There is also diastasis of rectus muscles in the abdominal wall. In general this appearance is stable compared 2020.But there is a small hernia in middle to lower abdomen. This allows a small bowel loop to protrude into the subcutaneous tissue, image 71 series 3. This was not present on the prior study. There is also a small hernia along the anterior superior abdomen allowing side wall of the bowel to protrude into the subcutaneous tissue. This is slightly larger than previously. This is along the right lateral margin of the surgical mesh.There is increased density in subcutaneous tissue of the abdominal wall, right side more than left. This is stable in appearance probably representing focal scarring. No fluid collection to suggest an abscess.Bilateral femoral head AVN is present. Stable in appearance. Femoral head contour is preserved.IMPRESSION1. Upper and lower abdominal wall hernias2. No inflammation or evidence for abscessElectronically signed by: James Pérez (Jun 18, 2022 12:48:07)
[2022-06-18] MEDS: SUBOXONE TAB SL SCH ×2 (14:58→21:57)
--- NOTE | 2022-06-18 17:10 | DR.PROGNOT ---
HOSPITAL PROGRESS NOTE Progress Note for Day of: Progress Note Date: 06/18/22 Chief Complaint Chief Complaint: moderate pain at the open abdominal wound . moderate drainage from the skin edges abdominal CT showed ventral hernias with Mesh , no abscess . final C&S is not available .. Past Medical Family Social History Past Med/Fam/Surg Hx: No changes since H&P Allergies: Allergies ciprofloxacin [From Cipro] Allergy (Severe, Verified 08/31/21 07:33) ANAPHALEXIS REACTION Reason: Drug allergy divalproex sodium [From Depakote] Allergy (Severe, Verified 08/31/21 07:33) ANAPHALEXIS REACTION Reason: Drug allergy ondansetron [From Zofran] Allergy (Intermediate, Unverified 08/31/21 07:33) NAUSEA and VOMITING Reason: Drug allergy benztropine Allergy (Unknown, Verified 08/31/21 07:33) sumatriptan [Imitrex] Allergy (Unknown, Verified 03/29/21 10:08) Reason: Drug allergy Review Of Systems ROS: No change since H&P Vital Signs Vital Signs: Temperature 98.1 F Pulse Rate [Left Brachial] 60 Respiratory Rate 20 Blood Pressure [Left Arm] 126/67 Blood Pressure 89/57 O2 Sat by Pulse Oximetry 95 Physical Exam Oriented: Normal, Time, Person and Place; negative Not Oriented Eyes: Normal Ear: Normal Nose: Normal Respiratory: Normal Cardiovascular: Normal GI:Auscultation: Normal GI:Palpation: Normal GI: Tenderness: Normal Skin: Hot and Wound (most of the wound is healed .several sinus tracts with deep tunneling . only mild associated cellulitis .. ) Musculoskeletal: Normal Psychiatric: Normal Mood Description: Calm and Appropriate Affect: Normal Speech Pattern: Clear and Appropriate; negative Unclear, Inappropriate, Delayed or Slurred Laboratory and Diagnostics Result Diagrams: 06/18/22 05:04 06/18/22 05:04 Labs: 06/17/22 17:05 Abdomen Wound Culture - Preliminary Laboratory WBC 8.5 X10^3/uL (3.6-10.0) 06/18/22 05:04 RBC 3.62 X10^6/uL (3.5-5.4) 06/18/22 05:04 Hgb 8.7 g/dL (12.0-16.0) L 06/18/22 05:04 Hct 27.3 % (36.0-47.0) L 06/18/22 05:04 MCV 75.3 fL (80.0-100.0) L 06/18/22 05:04 MCH 24.1 pg (27.0-34.0) L 06/18/22 05:04 MCHC 32.0 g/dL (33.0-35.0) L 06/18/22 05:04 RDW 17.0 % (11.6-16.5) H 06/18/22 05:04 Plt Count 252 X10^3/uL (150.0-450.0) 06/18/22 05:04 MPV 8.3 fL (7.4-11.0) 06/18/22 05:04 Neut % (Auto) 75.9 % (42.0-75.0) H 06/18/22 05:04 Lymph % (Auto) 13.3 % (21.0-51.0) L 06/18/22 05:04 [place] % (Auto) 7.6 % (0.0-13.0) 06/18/22 05:04 Eos % (Auto) 2.7 % (0.9-2.9) 06/18/22 05:04 Baso % (Auto) 0.5 % (0.2-1.0) 06/18/22 05:04 Neut # (Auto) 6.5 x10^3/uL (2.2-4.8) H 06/18/22 05:04 Lymph # (Auto) 1.1 X10^3/uL (1.3-2.9) L 06/18/22 05:04 [place] # (Auto) 0.6 x10^3/uL (0.3-0.8) 06/18/22 05:04 Eos # (Auto) 0.2 x10^3/uL (0.0-0.2) 06/18/22 05:04 Baso # (Auto) 0.0 X10^3/uL (0.0-0.1) 06/18/22 05:04 Absolute Nucleated RBC 0.0 /100WBC 06/18/22 05:04 Sodium 141 mmol/L (136-145) 06/18/22 05:04 Corrected Sodium TNP 06/18/22 05:04 Potassium 3.4 mmol/L (3.5-5.1) L 06/18/22 05:04 Chloride 104 mmol/L (98-107) 06/18/22 05:04 Carbon Dioxide 30.1 mmol/L (21-32) 06/18/22 05:04 BUN 12 mg/dL (7-18) 06/18/22 05:04 Creatinine 1.23 mg/dL (0.55-1.02) H 06/18/22 05:04 Est GFR (MDRD) Af Amer 59 (>60) 06/18/22 05:04 Est GFR (MDRD) Non-Af 49 (>60) L 06/18/22 05:04 Glucose 99 mg/dL (65-99) 06/18/22 05:04 Calcium 8.6 mg/dL (8.5-10.1) 06/18/22 05:04 Corrected Calcium 9.7 mg/dL (8.5-10.1) 06/18/22 05:04 Magnesium 1.5 mg/dL (2.0-2.9) L 06/18/22 05:04 Total Bilirubin 0.20 mg/dL (0.2-1.0) 06/18/22 05:04 AST 22 Units/L (15-37) 06/18/22 05:04 ALT 10 Units/L (12-78) L 06/18/22 05:04 Alkaline Phosphatase 99 Units/L (46-116) 06/18/22 05:04 Total Protein 6.6 g/dL (6.4-8.2) 06/18/22 05:04 Albumin 2.6 g/dL (3.4-5.0) L 06/18/22 05:04 Globulin 4.0 g/dL (2.5-4.5) 06/18/22 05:04 Albumin/Globulin Ratio 0.7 Ratio (1.1-2.1) L 06/18/22 05:04 Assessment and Plan 1: chronic infected wound abdominal wall . for debridement in the OR in am 2: obesity 4: anxiety disorder .
[2022-06-18] MEDS: AMBIEN PO SCH (20:20)
[2022-06-18] MEDS: BENADRYL CAP/TAB 25 MG PO PRN (20:20)
[2022-06-18] MEDS: MELATONIN PO SCH (20:20)
[2022-06-18] MEDS: KLONOPIN TAB 1 MG PO PRN (20:21)
[2022-06-18] MEDS: PERCOCET TAB 5/325 MG PO PRN (20:21)
--- NOTE | 2022-06-18 22:45 | EKG ---
Test Reason : surgery tomorrow Blood Pressure : */* mmHG Vent. Rate : 62 BPM Atrial Rate : 62 BPM P-R Int : 204 ms QRS Dur : 78 ms QT Int : 422 ms P-R-T Axes : 29 12 36 degrees QTc Int : 428 ms Normal sinus rhythm Low voltage QRS Borderline ECG When compared with ECG of 17-JUN-2022 17:18, Previous ECG has undetermined rhythm, needs review Questionable change in QRS duration Confirmed by Nicola Brown ([id number]) on 06/19/2022 8:23:44 AM Referred By: Confirmed By: Nicola Brown
[2022-06-18] MEDS: ATARAX TAB 25 MG PO PRN (23:57)
[2022-06-19] MEDS: PERCOCET TAB 5/325 MG PO PRN ×4 (00:01→20:20)
[2022-06-19] MEDS: CLEOCIN 600 MG IV PREMIX 600 MG/50 ML BAG IV SCH ×3 (05:12→21:00)
[2022-06-19] MEDS: NEURONTIN TAB 600 MG PO SCH ×3 (05:13→21:00)
[2022-06-19] MEDS: SUBOXONE TAB SL SCH ×3 (05:13→21:01)
[2022-06-19] MEDS: REGLAN TAB 10 MG PO SCH ×4 (05:35→20:21)
[2022-06-19] MEDS: CREON PO SCH ×3 (06:11→16:43)
[2022-06-19 06:50] LABS: ALANINE AMINOTRANSFERASE 8 Units/L (12-78); ALBUMIN 2.6 g/dL (3.4-5.0); ALKALINE PHOSPHATASE 105 Units/L (46-116); ASPARTATE AMINO TRANSFERASE 27 Units/L (15-37); BLOOD UREA NITROGEN 11 mg/dL (7-18); CALCIUM 8.7 mg/dL (8.5-10.1); CARBON DIOXIDE 27.4 mmol/L (21-32); CHLORIDE 104 mmol/L (98-107); COR CA(FOR HYPOALB) 9.8 mg/dL (8.5-10.1); CREATININE 1.18 mg/dL (0.55-1.02); MAGNESIUM 1.9 mg/dL (2.0-2.9); SODIUM 140 mmol/L (136-145); TOTAL PROTEIN 6.6 g/dL (6.4-8.2); eGFR NON BLACK RACES 51 (>60)
[2022-06-19 06:58] LABS: BASOPHILS # (AUTO) 0.1 X10^3/uL (0.0-0.1); BASOPHILS % (AUTO) 0.9 % (0.2-1.0); EOSINOPHILS # (AUTO) 0.2 x10^3/uL (0.0-0.2); EOSINOPHILS % (AUTO) 3.1 % (0.9-2.9); HEMATOCRIT 27.5 % (36.0-47.0); HEMOGLOBIN 8.8 g/dL (12.0-16.0); LYMPHOCYTES # (AUTO) 0.9 X10^3/uL (1.3-2.9); LYMPHOCYTES % (AUTO) 14.7 % (21.0-51.0); MEAN CORPUSCULAR HEMOGLOBIN 24.2 pg (27.0-34.0); MEAN CORPUSCULAR VOLUME 75.7 fL (80.0-100.0); MEAN PLATELET VOLUME 7.9 fL (7.4-11.0); MONOCYTES # (AUTO) 0.5 x10^3/uL (0.3-0.8); MONOCYTES % (AUTO) 8.7 % (0.0-13.0); NEUTROPHILS # (AUTO) 4.5 x10^3/uL (2.2-4.8); NEUTROPHILS % (AUTO) 72.6 % (42.0-75.0); RED BLOOD COUNT 3.64 X10^6/uL (3.5-5.4); RED CELL DISTRIBUTION WIDTH 17.2 % (11.6-16.5); WHITE BLOOD COUNT 6.2 X10^3/uL (3.6-10.0)
[2022-06-19] MEDS ORDERED: STERILE WATER IRRIGATION IR ONE (07:21)
[2022-06-19] MEDS ORDERED: POLYMYXIN B SULFATE ONE (07:25)
[2022-06-19] MEDS ORDERED: BETADINE SOLN ONE (07:25)
[2022-06-19] MEDS ORDERED: XYLOCAINE 1 % (PLAIN) ONE ×2 (07:25→10:46)
[2022-06-19] MEDS ORDERED: NS 1,000 ML IV 1,000 ML ONE (07:32)
[2022-06-19] MEDS ORDERED: ANCEF VIAL 1 GRAM ONE (07:32)
[2022-06-19] MEDS ORDERED: NS 100 ML IV 100 ML ONE (07:33)
[2022-06-19] MEDS ORDERED: KETAMINE HCL ONE (07:50)
[2022-06-19] MEDS ORDERED: FENTANYL VIAL INJ 100 mcg ONE (07:52)
[2022-06-19] MEDS ORDERED: VERSED ONE (07:52)
[2022-06-19] MEDS ORDERED: DIPRIVAN VIAL 20 ML ONE (07:59)
[2022-06-19] MEDS: KLONOPIN TAB 1 MG PO PRN ×3 (08:44→23:43)
[2022-06-19] MEDS: CELEXA PO SCH (08:44)
[2022-06-19] MEDS: LASIX PO SCH ×2 (08:45→16:42)
[2022-06-19] MEDS: LINZESS PO SCH (08:45)
[2022-06-19] MEDS: HEMOCYTE-PLUS PO SCH (08:45)
[2022-06-19] MEDS: PROTONIX TAB 40 MG PO SCH ×2 (08:46→20:20)
[2022-06-19] MEDS: BENADRYL CAP/TAB 25 MG PO PRN ×2 (08:46→20:20)
[2022-06-19] MEDS: TAB-A-VITE PO SCH (08:46)
[2022-06-19] MEDS: MICRO K EXTEN CAP 10 MEQ PO SCH (08:46)
[2022-06-19] MEDS: MYSOLINE PO SCH (08:47)
[2022-06-19] MEDS: COREG TAB 3.125 MG PO SCH ×2 (08:47→20:20)
[2022-06-19] MEDS: ZANAFLEX PO PRN ×2 (08:52→20:19)
[2022-06-19] MEDS: PATIENT'S HOME MEDICATION PO SCH ×2 (09:09→20:23)
--- NOTE | 2022-06-19 11:28 | PCM.PROG ---
Progress Note - Past Medical Family Social History Past Med/Fam/Surg Hx: No changes since H&P Allergies: Allergies ciprofloxacin [From Cipro] Allergy (Severe, Verified 08/31/21 07:33) ANAPHALEXIS REACTION Reason: Drug allergy divalproex sodium [From Depakote] Allergy (Severe, Verified 08/31/21 07:33) ANAPHALEXIS REACTION Reason: Drug allergy ondansetron [From Zofran] Allergy (Intermediate, Unverified 08/31/21 07:33) NAUSEA and VOMITING Reason: Drug allergy benztropine Allergy (Unknown, Verified 08/31/21 07:33) sumatriptan [Imitrex] Allergy (Unknown, Verified 03/29/21 10:08) Reason: Drug allergy - Review of Systems ROS: No change since H&P - Vital Signs and I&O's Vital Signs: Temperature 98.1 F Pulse Rate [Left Brachial] 64 Pulse Rate 65 Respiratory Rate 18 Blood Pressure [Left Arm] 147/82 Blood Pressure 130/70 O2 Sat by Pulse Oximetry 95 Intake and Output: Intake & Output 06/16/22 06/17/22 06/18/22 06/19/22 23:59 23:59 23:59 23:59 Intake Total 80 / 80 1280 / 1280 1200 / 1200 Output Total 1950 / 1950 1010 / 1010 Balance 80 / 80 -670 / -670 190 / 190 - Physical Exam Oriented: Normal, Time, Person, Place. negative: Not Oriented Eyes: Normal Ear: Normal Nose: Normal Respiratory: Normal Cardiovascular: Normal Auscultation: Bowel Sounds: Normal Tenderness: Normal Skin: Hot, Wound (most of the wound is healed .several sinus tracts with deep tunneling . only mild associated cellulitis ..) Musculoskeletal: Normal Psychiatric: Normal Mood Description: Calm, Appropriate Affect: Normal Speech Pattern: Clear - Laboratory and Diagnostics Result Diagrams: 06/19/22 06:15 06/19/22 06:15 Labs: 06/17/22 17:05 Abdomen Wound Culture - Preliminary Laboratory WBC 6.2 X10^3/uL (3.6-10.0) 06/19/22 06:15 RBC 3.64 X10^6/uL (3.5-5.4) 06/19/22 06:15 Hgb 8.8 g/dL (12.0-16.0) L 06/19/22 06:15 Hct 27.5 % (36.0-47.0) L 06/19/22 06:15 MCV 75.7 fL (80.0-100.0) L 06/19/22 06:15 MCH 24.2 pg (27.0-34.0) L 06/19/22 06:15 MCHC 32.0 g/dL (33.0-35.0) L 06/19/22 06:15 RDW 17.2 % (11.6-16.5) H 06/19/22 06:15 Plt Count 244 X10^3/uL (150.0-450.0) 06/19/22 06:15 MPV 7.9 fL (7.4-11.0) 06/19/22 06:15 Neut % (Auto) 72.6 % (42.0-75.0) 06/19/22 06:15 Lymph % (Auto) 14.7 % (21.0-51.0) L 06/19/22 06:15 [place] % (Auto) 8.7 % (0.0-13.0) 06/19/22 06:15 Eos % (Auto) 3.1 % (0.9-2.9) H 06/19/22 06:15 Baso % (Auto) 0.9 % (0.2-1.0) 06/19/22 06:15 Neut # (Auto) 4.5 x10^3/uL (2.2-4.8) 06/19/22 06:15 Lymph # (Auto) 0.9 X10^3/uL (1.3-2.9) L 06/19/22 06:15 [place] # (Auto) 0.5 x10^3/uL (0.3-0.8) 06/19/22 06:15 Eos # (Auto) 0.2 x10^3/uL (0.0-0.2) 06/19/22 06:15 Baso # (Auto) 0.1 X10^3/uL (0.0-0.1) 06/19/22 06:15 Absolute Nucleated RBC 0.0 /100WBC 06/19/22 06:15 Sodium 140 mmol/L (136-145) 06/19/22 06:15 Corrected Sodium TNP 06/19/22 06:15 Potassium 3.5 mmol/L (3.5-5.1) 06/19/22 06:15 Chloride 104 mmol/L (98-107) 06/19/22 06:15 Carbon Dioxide 27.4 mmol/L (21-32) 06/19/22 06:15 BUN 11 mg/dL (7-18) 06/19/22 06:15 Creatinine 1.18 mg/dL (0.55-1.02) H 06/19/22 06:15 Est GFR (MDRD) Af Amer > 60 (>60) 06/19/22 06:15 Est GFR (MDRD) Non-Af 51 (>60) L 06/19/22 06:15 Glucose 95 mg/dL (65-99) 06/19/22 06:15 Calcium 8.7 mg/dL (8.5-10.1) 06/19/22 06:15 Corrected Calcium 9.8 mg/dL (8.5-10.1) 06/19/22 06:15 Magnesium 1.9 mg/dL (2.0-2.9) L 06/19/22 06:15 Total Bilirubin 0.20 mg/dL (0.2-1.0) 06/19/22 06:15 AST 27 Units/L (15-37) 06/19/22 06:15 ALT 8 Units/L (12-78) L 06/19/22 06:15 Alkaline Phosphatase 105 Units/L (46-116) 06/19/22 06:15 Total Protein 6.6 g/dL (6.4-8.2) 06/19/22 06:15 Albumin 2.6 g/dL (3.4-5.0) L 06/19/22 06:15 Globulin 4.0 g/dL (2.5-4.5) 06/19/22 06:15 Albumin/Globulin Ratio 0.7 Ratio (1.1-2.1) L 06/19/22 06:15 Procedures (ALL) - Central Line Placement PCM.CLCO: written consent Time out performed: Yes Patient placed pm monitor/pulse ox: Yes prep: mask, gown, gloves, other Centrial line prep: chlorhexidine scrub Local anesthsia used: lidocane 1% Ultrasound used for placement: Yes (good us visualization) Central line lumen ininserted: double (PICC; 36cm arm circumference at site & 40cm deep.) Post procedure: sutured in place (STAT lock, bio patch, & skin protectant & sterile tegaderm ), good blood return, all ports aspirated, flushed,capped, sterile dressing applied Post procedure xray: tip oc catheter in good position, no pneumothorax seen, other Patient tolerated procedure: Yes (x2 attempt) Complications: none
--- NOTE | 2022-06-19 11:32 | RAD ---
HISTORYPICC LINE PLACEMENTSTUDYCHEST, 1 [id number]/27/2023.TECHNIQUEPA or AP view of the chestFINDINGSRight upper extremity PICC line with tip in the superior SVC. The cardiac silhouette is stably enlarged. Mediastinal contours appear stable. No consolidation or segmental lung collapse. No definite pleural effusion or pneumothorax. Soft tissue attenuation limits evaluation.IMPRESSIONConsider 4-5 cm advancement of right upper extremity PICC line for more optimal positioning. No acute pulmonary process.Electronically signed by: Ronnell Raines (Jun 19, 2022 11:31:26)
--- NOTE | 2022-06-19 14:37 | PCM.PROG ---
Progress Note Progress Note for Day of Date of Exam: 06/19/22 Subjective Subjective: I just saw the patient here at 1430 this afternoon. She is lying in bed comfortably and has no new complaints. She reports her anxiety is much improved with the Klonopin that I been given her. She reports her pain is controlled at this time. She was in the operating room earlier this morning and they found that she had some tracking of the infection from the anterior wound infection she has only abdomen. She is currently receiving IV antibiotics for that and pain control from surgery. Everything is stable at this time, no changes to treatment. Past Medical Family Social History Past Med/Fam/Surg Hx: No changes since H&P Allergies: Allergies ciprofloxacin [From Cipro] Allergy (Severe, Verified 08/31/21 07:33) ANAPHALEXIS REACTION Reason: Drug allergy divalproex sodium [From Depakote] Allergy (Severe, Verified 08/31/21 07:33) ANAPHALEXIS REACTION Reason: Drug allergy ondansetron [From Zofran] Allergy (Intermediate, Unverified 08/31/21 07:33) NAUSEA and VOMITING Reason: Drug allergy benztropine Allergy (Unknown, Verified 08/31/21 07:33) sumatriptan [Imitrex] Allergy (Unknown, Verified 03/29/21 10:08) Reason: Drug allergy Review of Systems ROS: No change since H&P Vital Signs and I&O's Vital Signs: Temperature 98.5 F Pulse Rate [Left Brachial] 63 Pulse Rate 65 Respiratory Rate 22 Blood Pressure [Left Arm] 116/56 Blood Pressure 130/70 O2 Sat by Pulse Oximetry 92 Intake and Output: Intake & Output 06/17/22 06/18/22 06/19/22 06/20/22 11:59 11:59 11:59 11:59 Intake Total 360 / 360 2200 / 2200 Output Total 1150 / 1150 1810 / 1810 Balance -790 / -790 390 / 390 Physical Exam Oriented: Normal, Time, Person and Place; negative Not Oriented Eyes: Normal Ear: Normal Nose: Normal Respiratory: Normal Cardiovascular: Normal Auscultation: Bowel Sounds: Normal Tenderness: Normal Skin: Hot and Wound (most of the wound is healed .several sinus tracts with deep tunneling . only mild associated cellulitis .. ) Musculoskeletal: Normal Psychiatric: Normal Mood Description: Calm and Appropriate Affect: Normal Speech Pattern: Clear Laboratory and Diagnostics Result Diagrams: 06/19/22 06:15 06/19/22 06:15 Labs: 06/17/22 17:05 Abdomen Wound Culture - Preliminary Laboratory WBC 6.2 X10^3/uL (3.6-10.0) 06/19/22 06:15 RBC 3.64 X10^6/uL (3.5-5.4) 06/19/22 06:15 Hgb 8.8 g/dL (12.0-16.0) L 06/19/22 06:15 Hct 27.5 % (36.0-47.0) L 06/19/22 06:15 MCV 75.7 fL (80.0-100.0) L 06/19/22 06:15 MCH 24.2 pg (27.0-34.0) L 06/19/22 06:15 MCHC 32.0 g/dL (33.0-35.0) L 06/19/22 06:15 RDW 17.2 % (11.6-16.5) H 06/19/22 06:15 Plt Count 244 X10^3/uL (150.0-450.0) 06/19/22 06:15 MPV 7.9 fL (7.4-11.0) 06/19/22 06:15 Neut % (Auto) 72.6 % (42.0-75.0) 06/19/22 06:15 Lymph % (Auto) 14.7 % (21.0-51.0) L 06/19/22 06:15 [place] % (Auto) 8.7 % (0.0-13.0) 06/19/22 06:15 Eos % (Auto) 3.1 % (0.9-2.9) H 06/19/22 06:15 Baso % (Auto) 0.9 % (0.2-1.0) 06/19/22 06:15 Neut # (Auto) 4.5 x10^3/uL (2.2-4.8) 06/19/22 06:15 Lymph # (Auto) 0.9 X10^3/uL (1.3-2.9) L 06/19/22 06:15 [place] # (Auto) 0.5 x10^3/uL (0.3-0.8) 06/19/22 06:15 Eos # (Auto) 0.2 x10^3/uL (0.0-0.2) 06/19/22 06:15 Baso # (Auto) 0.1 X10^3/uL (0.0-0.1) 06/19/22 06:15 Absolute Nucleated RBC 0.0 /100WBC 06/19/22 06:15 Sodium 140 mmol/L (136-145) 06/19/22 06:15 Corrected Sodium TNP 06/19/22 06:15 Potassium 3.5 mmol/L (3.5-5.1) 06/19/22 06:15 Chloride 104 mmol/L (98-107) 06/19/22 06:15 Carbon Dioxide 27.4 mmol/L (21-32) 06/19/22 06:15 BUN 11 mg/dL (7-18) 06/19/22 06:15 Creatinine 1.18 mg/dL (0.55-1.02) H 06/19/22 06:15 Est GFR (MDRD) Af Amer > 60 (>60) 06/19/22 06:15 Est GFR (MDRD) Non-Af 51 (>60) L 06/19/22 06:15 Glucose 95 mg/dL (65-99) 06/19/22 06:15 Calcium 8.7 mg/dL (8.5-10.1) 06/19/22 06:15 Corrected Calcium 9.8 mg/dL (8.5-10.1) 06/19/22 06:15 Magnesium 1.9 mg/dL (2.0-2.9) L 06/19/22 06:15 Total Bilirubin 0.20 mg/dL (0.2-1.0) 06/19/22 06:15 AST 27 Units/L (15-37) 06/19/22 06:15 ALT 8 Units/L (12-78) L 06/19/22 06:15 Alkaline Phosphatase 105 Units/L (46-116) 06/19/22 06:15 Total Protein 6.6 g/dL (6.4-8.2) 06/19/22 06:15 Albumin 2.6 g/dL (3.4-5.0) L 06/19/22 06:15 Globulin 4.0 g/dL (2.5-4.5) 06/19/22 06:15 Albumin/Globulin Ratio 0.7 Ratio (1.1-2.1) L 06/19/22 06:15 Radiology Reviewed: Yes Plan (1) Bipolar disorder: Status: Acute (2) Infection of skin due to methicillin resistant Staphylococcus aureus (MRSA): Status: Acute (3) Anemia: Status: Acute Qualifiers: Anemia type: iron deficiency Iron deficiency anemia type: chronic blood loss Qualified Code(s): D50.0 - Iron deficiency anemia secondary to blood loss (chronic) (4) Depression: Status: None (5) Benign hypertension: Status: None Narrative Support Text: Blood pressure stable. Plan: No change to treatment of hypertension. (6) Opioid use disorder: Status: Acute (7) Anxiety: Status: Acute Plan: Continue as needed clonazepam.
[2022-06-19] MEDS: MELATONIN PO SCH (20:19)
[2022-06-19] MEDS: AMBIEN PO SCH (20:21)
[2022-06-19] MEDS: K-DUR TAB 20 MEQ PO PRN (20:21)
[2022-06-19] MEDS: ATARAX TAB 25 MG PO PRN (23:46)
[2022-06-20] MEDS: PERCOCET TAB 5/325 MG PO PRN ×4 (03:06→20:01)
[2022-06-20] MEDS: BENADRYL CAP/TAB 25 MG PO PRN ×3 (03:07→20:01)
[2022-06-20] MEDS: NEURONTIN TAB 600 MG PO SCH ×3 (05:25→21:03)
[2022-06-20] MEDS: CLEOCIN 600 MG IV PREMIX 600 MG/50 ML BAG IV SCH ×3 (05:25→21:03)
[2022-06-20] MEDS: REGLAN TAB 10 MG PO SCH ×4 (05:33→20:01)
[2022-06-20] MEDS: SUBOXONE TAB SL SCH ×3 (05:33→21:03)
[2022-06-20 05:38] LABS: BASOPHILS % (AUTO) 0.5 % (0.2-1.0); EOSINOPHILS # (AUTO) 0.2 x10^3/uL (0.0-0.2); HEMATOCRIT 27.1 % (36.0-47.0); HEMOGLOBIN 8.7 g/dL (12.0-16.0); LYMPHOCYTES # (AUTO) 1.1 X10^3/uL (1.3-2.9); LYMPHOCYTES % (AUTO) 15.1 % (21.0-51.0); MEAN CORPUSCULAR HEMOGLOBIN 24.3 pg (27.0-34.0); MEAN CORPUSCULAR HGB CONC 32.2 g/dL (33.0-35.0); MEAN CORPUSCULAR VOLUME 75.5 fL (80.0-100.0); MEAN PLATELET VOLUME 7.9 fL (7.4-11.0); MONOCYTES # (AUTO) 0.6 x10^3/uL (0.3-0.8); MONOCYTES % (AUTO) 8.4 % (0.0-13.0); NEUTROPHILS # (AUTO) 5.3 x10^3/uL (2.2-4.8); RED BLOOD COUNT 3.59 X10^6/uL (3.5-5.4); WHITE BLOOD COUNT 7.2 X10^3/uL (3.6-10.0)
[2022-06-20 05:55] LABS: ALANINE AMINOTRANSFERASE 9 Units/L (12-78); ALBUMIN 2.7 g/dL (3.4-5.0); ALKALINE PHOSPHATASE 103 Units/L (46-116); ASPARTATE AMINO TRANSFERASE 19 Units/L (15-37); BLOOD UREA NITROGEN 10 mg/dL (7-18); CALCIUM 8.7 mg/dL (8.5-10.1); CHLORIDE 103 mmol/L (98-107); COR CA(FOR HYPOALB) 9.7 mg/dL (8.5-10.1); CREATININE 1.25 mg/dL (0.55-1.02); MAGNESIUM 1.7 mg/dL (2.0-2.9); SODIUM 139 mmol/L (136-145); TOTAL PROTEIN 6.6 g/dL (6.4-8.2); eGFR NON BLACK RACES 48 (>60)
[2022-06-20] MEDS: K-DUR TAB 20 MEQ PO PRN (06:03)
[2022-06-20] MEDS: MAGNESIUM SULFATE 1 GRAM/100 mL PREMIX 1 G/100 ML BAG IV PRN ×2 (06:03→08:53)
[2022-06-20] MEDS: CREON PO SCH ×3 (06:12→16:31)
[2022-06-20] MEDS: LINZESS PO SCH (08:52)
[2022-06-20] MEDS: HEMOCYTE-PLUS PO SCH (08:52)
[2022-06-20] MEDS: COREG TAB 3.125 MG PO SCH ×2 (08:52→20:01)
[2022-06-20] MEDS: MICRO K EXTEN CAP 10 MEQ PO SCH (08:52)
[2022-06-20] MEDS: MYSOLINE PO SCH (08:52)
[2022-06-20] MEDS: TAB-A-VITE PO SCH (08:53)
[2022-06-20] MEDS: PROTONIX TAB 40 MG PO SCH ×2 (08:53→20:00)
[2022-06-20] MEDS: CELEXA PO SCH (08:53)
[2022-06-20] MEDS: KLONOPIN TAB 1 MG PO PRN ×2 (09:01→20:01)
[2022-06-20] MEDS: ZANAFLEX PO PRN ×2 (09:02→20:01)
[2022-06-20] MEDS: PHENERGAN TAB 25 MG PO PRN (09:02)
[2022-06-20] MEDS: LASIX PO SCH ×2 (09:02→16:32)
[2022-06-20] MEDS: PATIENT'S HOME MEDICATION PO SCH (09:14)
--- NOTE | 2022-06-20 11:55 | DR.PROGNOT ---
HOSPITAL PROGRESS NOTE Progress Note for Day of: Progress Note Date: 06/20/22 Chief Complaint Chief Complaint: moderate pain at the open abdominal wound . mild drainage from the wound . dressing is intact Past Medical Family Social History Past Med/Fam/Surg Hx: No changes since H&P Allergies: Allergies ciprofloxacin [From Cipro] Allergy (Severe, Verified 08/31/21 07:33) ANAPHALEXIS REACTION Reason: Drug allergy divalproex sodium [From Depakote] Allergy (Severe, Verified 08/31/21 07:33) ANAPHALEXIS REACTION Reason: Drug allergy ondansetron [From Zofran] Allergy (Intermediate, Unverified 08/31/21 07:33) NAUSEA and VOMITING Reason: Drug allergy benztropine Allergy (Unknown, Verified 08/31/21 07:33) sumatriptan [Imitrex] Allergy (Unknown, Verified 03/29/21 10:08) Reason: Drug allergy Review Of Systems ROS: No change since H&P Vital Signs Vital Signs: Temperature 98.7 F Pulse Rate [Right Brachial] 82 Pulse Rate [Left Brachial] 68 Pulse Rate 65 Respiratory Rate 16 Blood Pressure [Right Arm] 143/83 Blood Pressure [Left Arm] 121/64 Blood Pressure 130/70 O2 Sat by Pulse Oximetry 95 Physical Exam Oriented: Normal, Time, Person and Place; negative Not Oriented Eyes: Normal Ear: Normal Nose: Normal Respiratory: Normal Cardiovascular: Normal GI:Auscultation: Normal GI:Palpation: Normal GI: Tenderness: Normal Skin: Other (dressing intact . no cellulitis or necrosis ..) Musculoskeletal: Normal Psychiatric: Normal Mood Description: Calm and Appropriate Affect: Normal Speech Pattern: Clear Laboratory and Diagnostics Result Diagrams: 06/20/22 05:17 06/20/22 08:59 Labs: 06/19/22 08:07 Abdomen Wound Gram Stain - Final 06/19/22 08:07 Abdomen Wound Culture - Preliminary 06/17/22 17:05 Abdomen Wound Culture - Preliminary Laboratory WBC 7.2 X10^3/uL (3.6-10.0) 06/20/22 05:17 RBC 3.59 X10^6/uL (3.5-5.4) 06/20/22 05:17 Hgb 8.7 g/dL (12.0-16.0) L 06/20/22 05:17 Hct 27.1 % (36.0-47.0) L 06/20/22 05:17 MCV 75.5 fL (80.0-100.0) L 06/20/22 05:17 MCH 24.3 pg (27.0-34.0) L 06/20/22 05:17 MCHC 32.2 g/dL (33.0-35.0) L 06/20/22 05:17 RDW 17.0 % (11.6-16.5) H 06/20/22 05:17 Plt Count 238 X10^3/uL (150.0-450.0) 06/20/22 05:17 MPV 7.9 fL (7.4-11.0) 06/20/22 05:17 Neut % (Auto) 73.0 % (42.0-75.0) 06/20/22 05:17 Lymph % (Auto) 15.1 % (21.0-51.0) L 06/20/22 05:17 [place] % (Auto) 8.4 % (0.0-13.0) 06/20/22 05:17 Eos % (Auto) 3.0 % (0.9-2.9) H 06/20/22 05:17 Baso % (Auto) 0.5 % (0.2-1.0) 06/20/22 05:17 Neut # (Auto) 5.3 x10^3/uL (2.2-4.8) H 06/20/22 05:17 Lymph # (Auto) 1.1 X10^3/uL (1.3-2.9) L 06/20/22 05:17 [place] # (Auto) 0.6 x10^3/uL (0.3-0.8) 06/20/22 05:17 Eos # (Auto) 0.2 x10^3/uL (0.0-0.2) 06/20/22 05:17 Baso # (Auto) 0.0 X10^3/uL (0.0-0.1) 06/20/22 05:17 Absolute Nucleated RBC 0.0 /100WBC 06/20/22 05:17 Sodium 139 mmol/L (136-145) 06/20/22 05:17 Corrected Sodium TNP 06/20/22 05:17 Potassium 3.9 mmol/L (3.5-5.1) 06/20/22 08:59 Chloride 103 mmol/L (98-107) 06/20/22 05:17 Carbon Dioxide 29.0 mmol/L (21-32) 06/20/22 05:17 BUN 10 mg/dL (7-18) 06/20/22 05:17 Creatinine 1.25 mg/dL (0.55-1.02) H 06/20/22 05:17 Est GFR (MDRD) Af Amer 58 (>60) L 06/20/22 05:17 Est GFR (MDRD) Non-Af 48 (>60) L 06/20/22 05:17 Glucose 86 mg/dL (65-99) 06/20/22 05:17 Calcium 8.7 mg/dL (8.5-10.1) 06/20/22 05:17 Corrected Calcium 9.7 mg/dL (8.5-10.1) 06/20/22 05:17 Magnesium 1.7 mg/dL (2.0-2.9) L 06/20/22 05:17 Total Bilirubin 0.30 mg/dL (0.2-1.0) 06/20/22 05:17 AST 19 Units/L (15-37) 06/20/22 05:17 ALT 9 Units/L (12-78) L 06/20/22 05:17 Alkaline Phosphatase 103 Units/L (46-116) 06/20/22 05:17 Total Protein 6.6 g/dL (6.4-8.2) 06/20/22 05:17 Albumin 2.7 g/dL (3.4-5.0) L 06/20/22 05:17 Globulin 3.9 g/dL (2.5-4.5) 06/20/22 05:17 Albumin/Globulin Ratio 0.7 Ratio (1.1-2.1) L 06/20/22 05:17 Assessment and Plan 1: chronic infected wound abdominal wall . same local care , packing and Antibiotics . to d/c in am and continue wound care as out Pt 2: obesity 4: anxiety disorder .
--- NOTE | 2022-06-20 14:41 | PCM.PROG ---
Progress Note Progress Note for Day of Date of Exam: 06/20/22 Subjective Subjective: Patient is lying in bed this morning. She has had no acute problems since yesterday morning. She reports her anxiety is under control and has no new complaints today. Past Medical Family Social History Past Med/Fam/Surg Hx: No changes since H&P Allergies: Allergies ciprofloxacin [From Cipro] Allergy (Severe, Verified 08/31/21 07:33) ANAPHALEXIS REACTION Reason: Drug allergy divalproex sodium [From Depakote] Allergy (Severe, Verified 08/31/21 07:33) ANAPHALEXIS REACTION Reason: Drug allergy ondansetron [From Zofran] Allergy (Intermediate, Unverified 08/31/21 07:33) NAUSEA and VOMITING Reason: Drug allergy benztropine Allergy (Unknown, Verified 08/31/21 07:33) sumatriptan [Imitrex] Allergy (Unknown, Verified 03/29/21 10:08) Reason: Drug allergy Review of Systems ROS: No change since H&P Vital Signs and I&O's Vital Signs: Temperature 97.7 F Pulse Rate [Right Brachial] 68 Pulse Rate [Left Brachial] 68 Pulse Rate 65 Respiratory Rate 16 Blood Pressure [Right Arm] 156/77 Blood Pressure [Left Arm] 121/64 Blood Pressure 130/70 O2 Sat by Pulse Oximetry 96 Intake and Output: Intake & Output 06/18/22 06/19/22 06/20/22 06/21/22 11:59 11:59 11:59 11:59 Intake Total 360 / 360 2200 / 2200 1500 / 1500 306 / 306 Output Total 1150 / 1150 1810 / 1810 Balance -790 / -790 390 / 390 1500 / 1500 306 / 306 Physical Exam Oriented: Normal, Time, Person and Place; negative Not Oriented Eyes: Normal Ear: Normal Nose: Normal Respiratory: Normal Cardiovascular: Normal Auscultation: Bowel Sounds: Normal Tenderness: Normal Skin: Other (dressing intact . no cellulitis or necrosis ..) Musculoskeletal: Normal Psychiatric: Normal Mood Description: Calm and Appropriate Affect: Normal Speech Pattern: Clear Laboratory and Diagnostics Result Diagrams: 06/20/22 05:17 06/20/22 08:59 Labs: 06/19/22 08:07 Abdomen Wound Gram Stain - Final 06/19/22 08:07 Abdomen Wound Culture - Preliminary 06/17/22 17:05 Abdomen Wound Culture - Preliminary Laboratory WBC 7.2 X10^3/uL (3.6-10.0) 06/20/22 05:17 RBC 3.59 X10^6/uL (3.5-5.4) 06/20/22 05:17 Hgb 8.7 g/dL (12.0-16.0) L 06/20/22 05:17 Hct 27.1 % (36.0-47.0) L 06/20/22 05:17 MCV 75.5 fL (80.0-100.0) L 06/20/22 05:17 MCH 24.3 pg (27.0-34.0) L 06/20/22 05:17 MCHC 32.2 g/dL (33.0-35.0) L 06/20/22 05:17 RDW 17.0 % (11.6-16.5) H 06/20/22 05:17 Plt Count 238 X10^3/uL (150.0-450.0) 06/20/22 05:17 MPV 7.9 fL (7.4-11.0) 06/20/22 05:17 Neut % (Auto) 73.0 % (42.0-75.0) 06/20/22 05:17 Lymph % (Auto) 15.1 % (21.0-51.0) L 06/20/22 05:17 [place] % (Auto) 8.4 % (0.0-13.0) 06/20/22 05:17 Eos % (Auto) 3.0 % (0.9-2.9) H 06/20/22 05:17 Baso % (Auto) 0.5 % (0.2-1.0) 06/20/22 05:17 Neut # (Auto) 5.3 x10^3/uL (2.2-4.8) H 06/20/22 05:17 Lymph # (Auto) 1.1 X10^3/uL (1.3-2.9) L 06/20/22 05:17 [place] # (Auto) 0.6 x10^3/uL (0.3-0.8) 06/20/22 05:17 Eos # (Auto) 0.2 x10^3/uL (0.0-0.2) 06/20/22 05:17 Baso # (Auto) 0.0 X10^3/uL (0.0-0.1) 06/20/22 05:17 Absolute Nucleated RBC 0.0 /100WBC 06/20/22 05:17 Sodium 139 mmol/L (136-145) 06/20/22 05:17 Corrected Sodium TNP 06/20/22 05:17 Potassium 3.9 mmol/L (3.5-5.1) 06/20/22 08:59 Chloride 103 mmol/L (98-107) 06/20/22 05:17 Carbon Dioxide 29.0 mmol/L (21-32) 06/20/22 05:17 BUN 10 mg/dL (7-18) 06/20/22 05:17 Creatinine 1.25 mg/dL (0.55-1.02) H 06/20/22 05:17 Est GFR (MDRD) Af Amer 58 (>60) L 06/20/22 05:17 Est GFR (MDRD) Non-Af 48 (>60) L 06/20/22 05:17 Glucose 86 mg/dL (65-99) 06/20/22 05:17 Calcium 8.7 mg/dL (8.5-10.1) 06/20/22 05:17 Corrected Calcium 9.7 mg/dL (8.5-10.1) 06/20/22 05:17 Magnesium 1.7 mg/dL (2.0-2.9) L 06/20/22 05:17 Total Bilirubin 0.30 mg/dL (0.2-1.0) 06/20/22 05:17 AST 19 Units/L (15-37) 06/20/22 05:17 ALT 9 Units/L (12-78) L 06/20/22 05:17 Alkaline Phosphatase 103 Units/L (46-116) 06/20/22 05:17 Total Protein 6.6 g/dL (6.4-8.2) 06/20/22 05:17 Albumin 2.7 g/dL (3.4-5.0) L 06/20/22 05:17 Globulin 3.9 g/dL (2.5-4.5) 06/20/22 05:17 Albumin/Globulin Ratio 0.7 Ratio (1.1-2.1) L 06/20/22 05:17 Plan (1) Bipolar disorder: Status: Acute (2) Infection of skin due to methicillin resistant Staphylococcus aureus (MRSA): Status: Acute (3) Anemia: Status: Acute Qualifiers: Anemia type: iron deficiency Iron deficiency anemia type: chronic blood loss Qualified Code(s): D50.0 - Iron deficiency anemia secondary to blood loss (chronic) Plan: Check anemia profile (4) Depression: Status: None (5) Benign hypertension: Status: None Plan: No change to treatment of hypertension. (6) Opioid use disorder: Status: Acute (7) Anxiety: Status: Acute Plan: Continue as needed clonazepam.
[2022-06-20 16:03] LABS: IRON 24 ug/dL (50-175)
[2022-06-20] MEDS: AMBIEN PO SCH (20:00)
[2022-06-20] MEDS: MELATONIN PO SCH (20:00)
[2022-06-21] MEDS: PERCOCET TAB 5/325 MG PO PRN ×3 (00:42→08:47)
[2022-06-21] MEDS: KLONOPIN TAB 1 MG PO PRN (04:07)
[2022-06-21] MEDS: BENADRYL CAP/TAB 25 MG PO PRN ×2 (04:07→10:12)
[2022-06-21] MEDS: CLEOCIN 600 MG IV PREMIX 600 MG/50 ML BAG IV SCH (05:05)
[2022-06-21] MEDS: NEURONTIN TAB 600 MG PO SCH (05:05)
[2022-06-21] MEDS: SUBOXONE TAB SL SCH (05:06)
[2022-06-21] MEDS: REGLAN TAB 10 MG PO SCH (05:30)
[2022-06-21] MEDS: CREON PO SCH (06:07)
[2022-06-21 06:40] LABS: BASOPHILS # (AUTO) 0.1 X10^3/uL (0.0-0.1); BASOPHILS % (AUTO) 0.7 % (0.2-1.0); EOSINOPHILS # (AUTO) 0.2 x10^3/uL (0.0-0.2); HEMATOCRIT 27.1 % (36.0-47.0); HEMOGLOBIN 8.7 g/dL (12.0-16.0); LYMPHOCYTES # (AUTO) 1.1 X10^3/uL (1.3-2.9); LYMPHOCYTES % (AUTO) 15.2 % (21.0-51.0); MEAN CORPUSCULAR HEMOGLOBIN 24.3 pg (27.0-34.0); MEAN CORPUSCULAR VOLUME 75.9 fL (80.0-100.0); MEAN PLATELET VOLUME 8.3 fL (7.4-11.0); MONOCYTES # (AUTO) 0.5 x10^3/uL (0.3-0.8); MONOCYTES % (AUTO) 7.3 % (0.0-13.0); NEUTROPHILS # (AUTO) 5.5 x10^3/uL (2.2-4.8); NEUTROPHILS % (AUTO) 73.8 % (42.0-75.0); RED BLOOD COUNT 3.56 X10^6/uL (3.5-5.4); RED CELL DISTRIBUTION WIDTH 17.1 % (11.6-16.5); WHITE BLOOD COUNT 7.4 X10^3/uL (3.6-10.0)
[2022-06-21 07:29] LABS: ALBUMIN 2.7 g/dL (3.4-5.0); CALCIUM 8.2 mg/dL (8.5-10.1); CARBON DIOXIDE 28.3 mmol/L (21-32); COR CA(FOR HYPOALB) 9.2 mg/dL (8.5-10.1); CREATININE 1.3 mg/dL (0.55-1.02); MAGNESIUM 1.8 mg/dL (2.0-2.9); TOTAL PROTEIN 6.6 g/dL (6.4-8.2)
[2022-06-21] MEDS ORDERED: HYDROGEN PEROXIDE 3% ONE (07:52)
[2022-06-21] MEDS ORDERED: STERILE WATER IRRIGATION IR ONE (07:52)
[2022-06-21 07:57] VITALS: BP 122/79
[2022-06-21] MEDS: MYSOLINE PO SCH (08:40)
[2022-06-21] MEDS: LINZESS PO SCH (08:40)
[2022-06-21] MEDS: HEMOCYTE-PLUS PO SCH (08:40)
[2022-06-21] MEDS: K-DUR TAB 20 MEQ PO PRN (08:40)
[2022-06-21] MEDS: CELEXA PO SCH (08:40)
[2022-06-21] MEDS: TAB-A-VITE PO SCH (08:41)
[2022-06-21] MEDS: LASIX PO SCH (08:41)
[2022-06-21] MEDS: PROTONIX TAB 40 MG PO SCH (08:41)
[2022-06-21] MEDS: MICRO K EXTEN CAP 10 MEQ PO SCH (08:41)
[2022-06-21] MEDS: COREG TAB 3.125 MG PO SCH (08:41)
[2022-06-21] MEDS: MAGNESIUM SULFATE 1 GRAM/100 mL PREMIX 1 G/100 ML BAG IV PRN (08:44)
[2022-06-21] MEDS: PHENERGAN TAB 25 MG PO PRN (10:12)
--- NOTE | 2022-06-21 12:20 | PCM.PROG ---
Progress Note Progress Note for Day of Date of Exam: 06/21/22 Subjective Subjective: Patient is lying in bed this morning. She has had no acute problems since yesterday morning. Patient reports that her general surgeon told her that she is going home this morning. I will go ahead and have the nurses discharge her with ferrous sulfate 3 and 25 mg daily for 3 months and Colace 100 mg daily for 3 months as well. Anemia profile showed that she had iron deficiency anemia. Past Medical Family Social History Past Med/Fam/Surg Hx: No changes since H&P Allergies: Allergies ciprofloxacin [From Cipro] Allergy (Severe, Verified 08/31/21 07:33) ANAPHALEXIS REACTION Reason: Drug allergy divalproex sodium [From Depakote] Allergy (Severe, Verified 08/31/21 07:33) ANAPHALEXIS REACTION Reason: Drug allergy ondansetron [From Zofran] Allergy (Intermediate, Unverified 08/31/21 07:33) NAUSEA and VOMITING Reason: Drug allergy benztropine Allergy (Unknown, Verified 08/31/21 07:33) sumatriptan [Imitrex] Allergy (Unknown, Verified 03/29/21 10:08) Reason: Drug allergy Review of Systems ROS: No change since H&P Vital Signs and I&O's Vital Signs: Temperature 98.3 F Pulse Rate [Right Brachial] 62 Pulse Rate [Left Brachial] 68 Pulse Rate 65 Respiratory Rate 16 Blood Pressure [Right Arm] 106/57 Blood Pressure [Left Arm] 122/79 Blood Pressure 130/70 O2 Sat by Pulse Oximetry 95 Intake and Output: Intake & Output 06/19/22 06/20/22 06/21/22 06/22/22 11:59 11:59 11:59 11:59 Intake Total 2200 / 2200 1500 / 1500 1788 / 1788 Output Total 1810 / 1810 Balance 390 / 390 1500 / 1500 1788 / 1788 Physical Exam Oriented: Normal, Time, Person and Place; negative Not Oriented Eyes: Normal Ear: Normal Nose: Normal Respiratory: Normal Cardiovascular: Normal Auscultation: Bowel Sounds: Normal Tenderness: Normal Skin: Other (dressing intact . no cellulitis or necrosis ..) Musculoskeletal: Normal Psychiatric: Normal Mood Description: Calm and Appropriate Affect: Normal Speech Pattern: Clear Laboratory and Diagnostics Result Diagrams: 06/21/22 05:47 06/21/22 05:47 Labs: 06/19/22 08:07 Abdomen Wound Gram Stain - Final 06/19/22 08:07 Abdomen Wound Culture - Preliminary 06/17/22 17:05 Abdomen Wound Culture - Preliminary Laboratory WBC 7.4 X10^3/uL (3.6-10.0) 06/21/22 05:47 RBC 3.56 X10^6/uL (3.5-5.4) 06/21/22 05:47 Hgb 8.7 g/dL (12.0-16.0) L 06/21/22 05:47 Hct 27.1 % (36.0-47.0) L 06/21/22 05:47 MCV 75.9 fL (80.0-100.0) L 06/21/22 05:47 MCH 24.3 pg (27.0-34.0) L 06/21/22 05:47 MCHC 32.0 g/dL (33.0-35.0) L 06/21/22 05:47 RDW 17.1 % (11.6-16.5) H 06/21/22 05:47 Plt Count 232 X10^3/uL (150.0-450.0) 06/21/22 05:47 MPV 8.3 fL (7.4-11.0) 06/21/22 05:47 Neut % (Auto) 73.8 % (42.0-75.0) 06/21/22 05:47 Lymph % (Auto) 15.2 % (21.0-51.0) L 06/21/22 05:47 [place] % (Auto) 7.3 % (0.0-13.0) 06/21/22 05:47 Eos % (Auto) 3.0 % (0.9-2.9) H 06/21/22 05:47 Baso % (Auto) 0.7 % (0.2-1.0) 06/21/22 05:47 Neut # (Auto) 5.5 x10^3/uL (2.2-4.8) H 06/21/22 05:47 Lymph # (Auto) 1.1 X10^3/uL (1.3-2.9) L 06/21/22 05:47 [place] # (Auto) 0.5 x10^3/uL (0.3-0.8) 06/21/22 05:47 Eos # (Auto) 0.2 x10^3/uL (0.0-0.2) 06/21/22 05:47 Baso # (Auto) 0.1 X10^3/uL (0.0-0.1) 06/21/22 05:47 Absolute Nucleated RBC 0.0 /100WBC 06/21/22 05:47 Sodium 139 mmol/L (136-145) 06/21/22 05:47 Corrected Sodium 140 mmol/L (136-145) 06/21/22 05:47 Potassium 2.9 mmol/L (3.5-5.1) L* 06/21/22 05:47 Chloride 103 mmol/L (98-107) 06/21/22 05:47 Carbon Dioxide 28.3 mmol/L (21-32) 06/21/22 05:47 BUN 11 mg/dL (7-18) 06/21/22 05:47 Creatinine 1.30 mg/dL (0.55-1.02) H 06/21/22 05:47 Est GFR (MDRD) Af Amer 56 (>60) L 06/21/22 05:47 Est GFR (MDRD) Non-Af 46 (>60) L 06/21/22 05:47 Glucose 141 mg/dL (65-99) H 06/21/22 05:47 Calcium 8.2 mg/dL (8.5-10.1) L 06/21/22 05:47 Corrected Calcium 9.2 mg/dL (8.5-10.1) 06/21/22 05:47 Magnesium 1.8 mg/dL (2.0-2.9) L 06/21/22 05:47 Iron 24 ug/dL (50-175) L 06/20/22 15:00 Transferrin 173 mg/dL (202-364) L 06/20/22 15:00 Ferritin 53 ng/mL (8-252) 06/20/22 15:00 Total Bilirubin 0.20 mg/dL (0.2-1.0) 06/21/22 05:47 AST 18 Units/L (15-37) 06/21/22 05:47 ALT 10 Units/L (12-78) L 06/21/22 05:47 Alkaline Phosphatase 107 Units/L (46-116) 06/21/22 05:47 Total Protein 6.6 g/dL (6.4-8.2) 06/21/22 05:47 Albumin 2.7 g/dL (3.4-5.0) L 06/21/22 05:47 Globulin 3.9 g/dL (2.5-4.5) 06/21/22 05:47 Albumin/Globulin Ratio 0.7 Ratio (1.1-2.1) L 06/21/22 05:47 Vitamin B12 465 pg/mL (193-986) 06/20/22 15:00 Folate > 20.0 ng/mL (>8.6) 06/20/22 15:00 Tissue Pathology See comment. 06/19/22 08:07 Plan (1) Bipolar disorder: Status: Acute (2) Infection of skin due to methicillin resistant Staphylococcus aureus (MRSA): Status: Acute (3) Anemia: Status: Acute Qualifiers: Anemia type: iron deficiency Iron deficiency anemia type: chronic blood loss Qualified Code(s): D50.0 - Iron deficiency anemia secondary to blood loss (chronic) Plan: Check anemia profile (4) Depression: Status: None (5) Benign hypertension: Status: None Plan: No change to treatment of hypertension. (6) Opioid use disorder: Status: Acute (7) Anxiety: Status: Acute Plan: Continue as needed clonazepam. (8) Iron deficiency anemia: Status: Acute Plan: Patient will be given prescriptions for ferrous sulfate 3 and 25 mg daily x3 months and Colace 100 mg daily for 3 months to help prevent constipation associated with iron supplementation.
== END 2022-06-21 11:55 | DRG 603 ==
LOC: MED/SURG
PROVIDERS: ADMIT Surgery; ATTEND Surgery
DX: E66.01 Morbid (severe) obesity due to excess calories; S31.109S Unspecified open wound of abdominal wall, unspecified quadrant without penetration into peritoneal cavity, sequela; B95.7 Other staphylococcus as the cause of diseases classified elsewhere; K21.9 Gastro-esophageal reflux disease without esophagitis; D50.0 Iron deficiency anemia secondary to blood loss (chronic); I10 Essential (primary) hypertension; J44.9 Chronic obstructive pulmonary disease, unspecified; B96.89 Other specified bacterial agents as the cause of diseases classified elsewhere; T81.49XS Infection following a procedure, other surgical site, sequela; F11.90 Opioid use, unspecified, uncomplicated; F41.9 Anxiety disorder, unspecified; L08.89 Other specified local infections of the skin and subcutaneous tissue; F31.9 Bipolar disorder, unspecified; X58.XXXS Exposure to other specified factors, sequela